=== PATIENT | male | born 1980 | race Two or more races ===

== ENCOUNTER → 2020-08-27 14:17 | Outpatient (BNVA) | payer OTHER, SELFPAY | PROVIDERS: PCP Internal Medicine; Referring Provider Internal Medicine; Visit Provider Internal Medicine Cardiovascular Disease | DX: R00.2 Palpitations (principal) | CPT/HCPCS: 99214 ==

== ENCOUNTER 2020-09-08 14:50 | Outpatient (REF) | payer OTHER, SELFPAY ==
--- NOTE | 2020-09-08 16:05 | XR_ITS ---
EXAMINATION: XR CHEST CLINICAL INFORMATION: Dyspnea. COMPARISON: None TECHNIQUE: 2 views of the chest were obtained. FINDINGS: No significant abnormality is noted involving the heart, lungs, mediastinum, bony thorax or soft tissues. XR/XR chest 2V IMPRESSION: Unremarkable examination.
== END 2020-09-08 14:51 | disposition home or self-care (01) ==
LOC: HO.XRAY 14:50
PROVIDERS: PCP Internal Medicine; Visit Provider Internal Medicine Pulmonary Disease
DX: R06.00 Dyspnea, unspecified (principal)
CPT/HCPCS: 71046; 99202

== ENCOUNTER → 2020-09-19 09:38 | Outpatient (REF) | payer OTHER, SELFPAY ==
--- NOTE | 2020-09-19 09:41 | CA_ITS ---
Transthoracic Echocardiogram Patient (Last, First, Middle): Collin Cedeño, Gender: Male Date of : 1980 Age: 40 Procedure Date: 09/19/2020 Procedure Type: Transthoracic Echocardiogram Location: OP Height: 182.88 cm Weight: 65.77 kg BSA: 1.86 m2 Heart Rate: bpm BP: 122 / 60 mmHg Combination Technician: Referring MD: Don Zamora MD Nutrition Intern: Shakir Estrada MD Symptoms: R06.00 - Dyspnea, unspecified Study Quality: Good ECG Rhythm: Sinus Conclusions: - Normal study Findings Left Ventricle Normal left ventricular size, thickness, and systolic function. The visually estimated ejection fraction is between 60-65%. Diastolic function is normal for age. Right Ventricle Normal right ventricular cavity size and systolic function. Atria Both atria are normal in size. There is no evidence of interatrial shunt. Aortic Valve Normal aortic valve structure and function. There is no aortic valve stenosis. There is no aortic valve regurgitation. Mitral Valve Normal mitral valve structure and function. There is trace mitral valve regurgitation. There is no mitral valve stenosis. Pulmonic Valve The pulmonic valve is normal. There is trace pulmonic valve regurgitation. Tricuspid Valve Normal tricuspid valve structure. There is trace tricuspid valve regurgitation. The right ventricular systolic pressure is normal. The right ventricular systolic pressure is 18 mmHg. Normal right atrial pressure. There is no evidence of pulmonary hypertension. Great Vessels All visible segments of the aorta are normal in size. The visualized portions of the pulmonary artery and branches are normal. Venous The inferior vena cava is normal in size and collapses greater than 50% with inspiration. Pericardium/Pleural There is no evidence of pericardial effusion. Prior Study Comparison No prior study available for comparison. Measurements 2D Linear Measurements IVSd: 0.77 0.6-0.9/0.6-1.0 cm LVIDd: 4.95 3.9-5.3/4.2-5.9 cm LVIDd Index: 2.66 2.4-3.2/2.2-3.1 cm/m2 LVIDs: 3.43 2.0-3.6 cm LVPWd: 0.76 0.7-1.1 cm Ao Root: 2.50 2.1-3.5 cm LA Diam: 3.40 2.7-3.8/3.0-4.0 cm LAIDs Index: 1.83 1.5-2.3 cm/m2 LV Mass: 157.24 67-162/88-224 g LV Mass Index: 84.54 43-95/49-115 g/m2 LVOT Diam: 2.10 3.0+(-)1.3 cm Mitral Valve MV Pk E: 0.82 MV PK A: 0.63 MV Decel Time: 261.00 E/A: 1.30 E'Lateral: 17.90 E'Medial: 10.70 E/E' Med: 7.60 E/E' Lat: 4.60 PHT: 76.00 MVA PHT: 2.89 Decel [place]: 3.13 Aortic Valve AoV Pk Jorge L: 1.48 AoV Mn Jorge L: 0.92 AoV VTI: 0.37 AoV Pk Grad: 9.00 Aov Mn Grad: 4.00 STONE Cont.VTI: 2.06 LVOT LVOT Pk Jorge L: 0.92 LVOT Mn Jorge L: 0.58 LVOT VTI: 0.22 LVOT Pk Grad: 3.00 LVOT Mn Grad: 2.00 LVOT Diam: 2.10 LVOT Area: 3.46 Diastolic Function MV Pk E: 0.82 MV Pk A: 0.63 E/A: 1.30 E'Medial: 10.70 E/E' Med: 7.60 E' Laterial: 17.90 E/E' Lat: 4.60 Tricuspid Valve TR Pk Jorge L: 1.94 TR Pk Grad: 15.00 RA Press: 3.00 RVSP: 18.00 Great Vessels Aorta Ao Root-2D: 2.50 2.0-3.7 cm Ao Asc: 3.00 2.1-3.4 cm Pulmonary Valve PV Pk Jorge L: 1.17 Peak PV Grad: 5.00 Updated in Other Vendor System with Status of Final Shakir Estrada MD electronically signed on 09/19/2020 4:05:27 PM with status of Final
--- NOTE | 2020-09-19 09:41 | ECG_ITS ---
Hook-up date: 2020-09-19 10:24:00 Duration: 47:59:00 Test Indications: PALPITATIONS Medications: 420248 QRS complexes 3 Ventricular ectopics which represent <1 % of total QRS comp. 23 Supraventricular ectopics which represent <1 % of total QRS comp. * Paced QRS complexs which represent % of total QRS comp. VENTRICULAR ECTOPY 3 Isolated 0 Bigeminal Cycles 0 Couplets 0 Runs 0 Beats in Runs * Beats LONGEST at * BPM at :: -- * Beats FASTEST at * BPM at :: -- SUPRAVENTRICULAR ECTOPY 5 Isolated 0 Couplets 0 Runs 0 Beats in Runs * Beats LONGEST at * BPM at :: -- * Beats FASTEST at * BPM at :: -- HEART RATES 52 MIN at 22:43:32 2020-09-19 56 AVG 138 MAX at 19:58:16 2020-09-20 LONGEST RR 1.4640 secs at 04:08:13 2020-09-21 S-T LEVELS Channel 1 - 128 mm at 10:24:00 2020-09-19 - 128 mm at 10:24:00 2020-09-19 Channel 2 - 128 mm at 10:24:00 2020-09-19 - 128 mm at 10:24:00 2020-09-19 Channel 3 - 128 mm at 02:94:31 -- - 128 mm at 02:94:31 Basic rhythm Normal sinus rhythm Frequent Sinus bradycardia , average HR of 56 bpm, 60% of time HR < 60 bpm No long pause or profound bradycardia No dangerous dysrhythm periods Patient did not report any symptoms in the diary Referred By: Rickie De León Overread By: MARGOTH GARDINER MD
== END ==
LOC: HO.CARD 09:38
PROVIDERS: PCP Internal Medicine; Visit Provider Internal Medicine Cardiovascular Disease
DX: R06.00 Dyspnea, unspecified (principal); R00.2 Palpitations
CPT/HCPCS: 93225; 93226; 93306

== ENCOUNTER → 2020-09-25 15:41 | Outpatient (BNVA) | payer OTHER, SELFPAY | PROVIDERS: PCP Internal Medicine; Visit Provider Internal Medicine Pulmonary Disease | DX: R06.00 Dyspnea, unspecified (principal); G47.33 Obstructive sleep apnea (adult) (pediatric) | CPT/HCPCS: 99212 ==

== ENCOUNTER → 2020-10-09 12:44 | Outpatient (REF) | payer OTHER, SELFPAY | LOC: HO.SL 12:44 | PROVIDERS: Visit Provider Internal Medicine Pulmonary Disease | DX: G47.33 Obstructive sleep apnea (adult) (pediatric) (principal) | CPT/HCPCS: 95806 ==

== ENCOUNTER → 2020-11-03 15:32 | Outpatient (BNVA) | payer OTHER, SELFPAY | PROVIDERS: PCP Internal Medicine; Visit Provider Internal Medicine Pulmonary Disease | DX: R06.00 Dyspnea, unspecified (principal); J84.9 Interstitial pulmonary disease, unspecified | CPT/HCPCS: 99212 ==

== ENCOUNTER → 2020-12-10 15:17 | Outpatient (BNVA) | payer OTHER, SELFPAY | PROVIDERS: PCP Internal Medicine; Visit Provider Internal Medicine Pulmonary Disease | DX: R06.00 Dyspnea, unspecified (principal); J84.9 Interstitial pulmonary disease, unspecified | CPT/HCPCS: 99212 ==

== ENCOUNTER → 2020-12-11 14:41 | Outpatient (BNVA) | payer OTHER, SELFPAY | PROVIDERS: PCP Internal Medicine; Visit Provider Internal Medicine Cardiovascular Disease | DX: R00.2 Palpitations (principal); R07.9 Chest pain, unspecified | CPT/HCPCS: 93005; 99212 ==

== ENCOUNTER 2020-12-26 16:14 | Outpatient (REF) | payer OTHER, SELFPAY ==
--- NOTE | ~2020-12-26 | CT_ITS ---
EXAMINATION: CT CHEST WITHOUT CONTRAST CLINICAL INFORMATION: Interstitial pulmonary disease COMPARISON: Previous chest x-ray September 2020 TECHNIQUE: Multidetector volumetric CT imaging of the chest was done. Axial MIP volume rendering provided. Sagittal and coronal reformatted images were obtained. This CT examination was performed using dose optimization techniques as appropriate, variously including the following: *Automated exposure control *Adjustment of mA and/or kV according to patient size (this includes techniques or standardized protocols for targeted exams where dose is matched to indication/reason for exam; i.e. 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 There is a 2 x 4 mm peripheral or subpleural left upper lobe nodule axial image 2:15 series 4. MEDIASTINUM: The mediastinum is normal. PLEURA: There is no pleural effusion. No pleural mass or thickening. AXILLA: No lymphadenopathy. UPPER ABDOMEN: Unremarkable. OSSEOUS STRUCTURES: There is a small calcification in the liver. CT/CT chest wo con IMPRESSION: Mild biapical pleural and parenchymal scarring. Solitary 2 x 4 mm peripheral or subpleural left upper lobe nodule. No evidence of interstitial lung disease. According to the UPDATED 2017 Fleischner Society recommendations, the advised follow-up imaging for less than 6 mm pulmonary nodule: Low risk, no chest CT follow-up and high risk, optional chest CT follow-up in one year.
== END 2020-12-26 16:15 | disposition home or self-care (01) ==
LOC: HO.CT 16:14
PROVIDERS: Visit Provider Internal Medicine Pulmonary Disease
DX: J84.9 Interstitial pulmonary disease, unspecified (principal)
CPT/HCPCS: 71250

== ENCOUNTER → 2021-01-09 14:39 | Outpatient (BNVA) | payer OTHER, SELFPAY | PROVIDERS: Visit Provider Internal Medicine Pulmonary Disease | DX: J45.909 Unspecified asthma, uncomplicated (principal); J84.9 Interstitial pulmonary disease, unspecified; R91.1 Solitary pulmonary nodule | CPT/HCPCS: 99212 ==

== ENCOUNTER 2021-01-12 09:17 | Outpatient (REF) | payer OTHER, SELFPAY ==
[2021-01-12 10:03] LABS: MANUAL DIFF FLAG NO
[2021-01-12 10:11] LABS: Basophils Percent Auto 0.5 % (0-2); Eosinophils Absolute Auto 0.2 X10*3/uL (0.0-0.4); Eosinophils Percent Auto 2.7 % (0-4); Hematocrit 45.3 % (42-52); Hemoglobin 15.1 g/dl (14.0-18.0); Imm Gran Abs Auto 0.02 X10*3/uL (0.00-0.03); Imm Gran Pct Auto 0.3 % (0.0-0.4); Lymphocytes Absolute Auto 1.8 X10*3/uL (1.2-4.9); Lymphocytes Percent Auto 29.4 % (20-40); Mean Corpuscular HGB Conc 33.3 g/dl (31.0-36.0); Mean Corpuscular Hemoglobin 31.5 pg (27.0-33.0); Mean Corpuscular Volume 94.4 fL (80-98); Mean Platelet Volume 10.3 fL (9.4-12.4); Monocytes Absolute Auto 0.5 X10*3/uL (0.1-1.2); Monocytes Percent Auto 8.1 % (2-11); Neutrophils Absolute Auto 3.7 X10*3/uL (2.0-8.3); Platelet Count 307 X10*3/uL (160-400); Red Cell Distribution Width 12.3 % (11.0-16.0); White Blood Count 6.2 X10*3/uL (4.8-10.8)
== END 2021-01-12 09:18 | disposition home or self-care (01) ==
LOC: HO.LAB 09:17
PROVIDERS: PCP Internal Medicine; Visit Provider Internal Medicine Pulmonary Disease
DX: R06.00 Dyspnea, unspecified (principal); Z01.82 Encounter for allergy testing
CPT/HCPCS: 36415; 82785; 85025; 86003

== ENCOUNTER 2021-02-24 07:35 | Outpatient (REF) | payer OTHER, SELFPAY | END 2021-02-24 07:36 | disposition home or self-care (01) | LOC: HO.MDS 07:35 | PROVIDERS: PCP Internal Medicine; Visit Provider Internal Medicine Pulmonary Disease | DX: J45.50 Severe persistent asthma, uncomplicated (principal) | CPT/HCPCS: 96372; J2357 ==

== ENCOUNTER 2021-03-24 07:08 | Outpatient (REF) | payer OTHER, SELFPAY | END 2021-03-24 07:09 | disposition home or self-care (01) | LOC: HO.MDS 07:08 | PROVIDERS: PCP Internal Medicine; Visit Provider Internal Medicine Pulmonary Disease | DX: J45.50 Severe persistent asthma, uncomplicated (principal) | CPT/HCPCS: 96372; J2357 ==

== ENCOUNTER 2021-04-21 07:07 | Outpatient (REF) | payer OTHER, SELFPAY | END 2021-04-21 07:08 | disposition home or self-care (01) | LOC: HO.MDS 07:07 | PROVIDERS: PCP Internal Medicine; Visit Provider Internal Medicine Pulmonary Disease | DX: J45.50 Severe persistent asthma, uncomplicated (principal) | CPT/HCPCS: 96372; J2357 ==

== ENCOUNTER 2021-07-09 08:44 | Outpatient (REF) | payer OTHER, SELFPAY | END 2021-07-09 08:45 | disposition home or self-care (01) | LOC: HO.MDS 08:44 | PROVIDERS: PCP Internal Medicine; Visit Provider Internal Medicine Pulmonary Disease | DX: J45.50 Severe persistent asthma, uncomplicated (principal) | CPT/HCPCS: 96372; J2357 ==

== ENCOUNTER → 2021-07-10 14:50 | Outpatient (BNVA) | payer OTHER, SELFPAY | PROVIDERS: PCP Internal Medicine; Visit Provider Internal Medicine Pulmonary Disease | DX: J45.909 Unspecified asthma, uncomplicated (principal); J84.9 Interstitial pulmonary disease, unspecified; R91.1 Solitary pulmonary nodule | CPT/HCPCS: 99212 ==

== ENCOUNTER 2021-08-07 13:20 | Outpatient (REF) | payer MEDICAID, SELFPAY | END 2021-08-07 13:21 | disposition home or self-care (01) | LOC: HO.MDS 13:20 | PROVIDERS: Visit Provider Internal Medicine Pulmonary Disease | DX: J45.50 Severe persistent asthma, uncomplicated (principal) | CPT/HCPCS: 96372; J2357 ==

== ENCOUNTER 2021-09-01 13:46 | Outpatient (REF) | payer MEDICAID, SELFPAY ==
[2021-09-01 15:46] LABS: C Reactive Protein 0.18 mg/dL (< or = 0.50); Lipase 49 U/L (8-78)
[2021-09-01 16:07] LABS: TSH reflex Free T4 0.93 uIU/mL (0.32-4.0)
[2021-09-01 16:22] LABS: Folate 15.5 ng/mL (> or = 4.0); Vitamin B12 974 pg/mL (200-900)
[2021-09-03 16:11] LABS: Transglutaminase Ab IgG <1.0 U/mL; Transglutaminase IgA <1.0 U/mL
[2021-09-05 15:21] LABS: Vitamin D 25-OH, D2 <4 ng/mL; Vitamin D 25-OH, D3 22 ng/mL; Vitamin D 25-OH, Total 22 ng/mL (30-100)
== END 2021-09-01 13:47 | disposition home or self-care (01) ==
LOC: HO.LAB 13:46
PROVIDERS: PCP Internal Medicine; Referring Provider Internal Medicine; Visit Provider Nurse Practitioner Family
DX: K21.9 Gastro-esophageal reflux disease without esophagitis (principal); K58.2 Mixed irritable bowel syndrome; E55.9 Vitamin D deficiency, unspecified; R10.11 Right upper quadrant pain; R14.0 Abdominal distension (gaseous); Z12.11 Encounter for screening for malignant neoplasm of colon
CPT/HCPCS: 36415; 82306; 82607; 82746; 83516; 83690; 84443; 86140; 99202

== ENCOUNTER 2021-09-02 17:35 | Outpatient (REF) | payer MEDICAID, SELFPAY | END 2021-09-02 17:36 | disposition home or self-care (01) | LOC: HO.LNP 17:35 | PROVIDERS: Visit Provider Nurse Practitioner Family | DX: K21.9 Gastro-esophageal reflux disease without esophagitis (principal) | CPT/HCPCS: 87338 ==

== ENCOUNTER 2021-09-04 09:08 | Outpatient (REF) | payer MEDICAID, SELFPAY | END 2021-09-04 09:09 | disposition home or self-care (01) | LOC: HO.MDS 09:08 | PROVIDERS: Visit Provider Internal Medicine Pulmonary Disease | DX: J45.50 Severe persistent asthma, uncomplicated (principal) | CPT/HCPCS: 96372; J2357 ==

== ENCOUNTER 2021-10-08 11:06 | Outpatient (REF) | payer MEDICAID, SELFPAY | END 2021-10-08 11:07 | disposition home or self-care (01) | LOC: HO.MDS 11:06 | PROVIDERS: Visit Provider Internal Medicine Pulmonary Disease | DX: J45.50 Severe persistent asthma, uncomplicated (principal) | CPT/HCPCS: 96372; J2357 ==

== ENCOUNTER 2021-10-09 09:41 | Outpatient (REF) | payer MEDICAID, SELFPAY ==
[2021-10-11 13:26] LABS: H Pylori Breath Test Negative (Negative)
== END 2021-10-09 09:42 | disposition home or self-care (01) ==
LOC: HO.LNP 09:41
PROVIDERS: PCP Internal Medicine; Referring Provider Internal Medicine; Visit Provider Nurse Practitioner Family
DX: K21.9 Gastro-esophageal reflux disease without esophagitis (principal); A04.8 Other specified bacterial intestinal infections; K58.9 Irritable bowel syndrome, unspecified; E55.9 Vitamin D deficiency, unspecified; R07.9 Chest pain, unspecified; R00.2 Palpitations; Z82.49 Family history of ischemic heart disease and other diseases of the circulatory system
CPT/HCPCS: 83013; 99212

== ENCOUNTER 2021-11-05 09:17 | Outpatient (REF) | payer MEDICAID, SELFPAY | END 2021-11-05 09:18 | disposition home or self-care (01) | LOC: HO.MDS 09:17 | PROVIDERS: Visit Provider Internal Medicine Pulmonary Disease | DX: J45.50 Severe persistent asthma, uncomplicated (principal) | CPT/HCPCS: 96372; J2357 ==

== ENCOUNTER 2021-12-03 08:44 | Outpatient (REF) | payer MEDICAID, SELFPAY | END 2021-12-03 08:45 | disposition home or self-care (01) | LOC: HO.MDS 08:44 | PROVIDERS: Visit Provider Internal Medicine Pulmonary Disease | DX: J45.50 Severe persistent asthma, uncomplicated (principal) | CPT/HCPCS: 96372 ==

== ENCOUNTER 2021-12-24 08:58 | Outpatient (REF) | payer MEDICAID, SELFPAY ==
--- NOTE | ~2021-12-24 | CT_ITS ---
EXAMINATION: CT CHEST WITHOUT CONTRAST CLINICAL INFORMATION: 41-year-old male with history of shortness of breath. Evaluate for interstitial lung disease. COMPARISON: CXR from 09/08/[address] from 12/26/2020. TECHNIQUE: Multidetector volumetric CT imaging of the chest was done. Axial MIP volume rendering provided. Sagittal and coronal reformatted images were obtained. This CT examination was performed using dose optimization techniques as appropriate, variously including the following: *Automated exposure control *Adjustment of mA and/or kV according to patient size (this includes techniques or standardized protocols for targeted exams where dose is matched to indication/reason for exam; i.e. extremities or head) *Use of iterative reconstruction technique DLP: 127 mGy-cm FINDINGS: LUNGS AND PLEURA: Trachea and central airways are widely patent and normal in caliber. Chronic, mild subpleural opacity of scarring is noted at the lung apices. No evidence of interstitial lung disease, consolidation or pleural effusion. A small opacity in the anterolateral left upper lobe that measures 0.2 cm AP has a linear appearance and is stable compared to 12/26/2020 (image 75, series 6). The linear configuration suggests chronic focus of scarring. No interval development of a suspicious lung lesion. CARDIOVASCULAR: The heart size is normal. Pulmonary arteries and thoracic aorta are normal in caliber. No pericardial effusion. MEDIASTINUM AND LOWER NECK: No mediastinal mass. The esophagus and visualized portion of the thyroid gland are normal. LYMPHATICS: No pathologic sized lymph nodes. UPPER ABDOMEN: A few old punctate calcifications are seen in the right hepatic lobe. SKELETAL AND CHEST WALL: No chest wall mass. Skeletal structures are unremarkable. CT/CT chest wo con IMPRESSION: * No evidence of interstitial lung disease. * The chronic, mild biapical scarring remains unchanged compared to 12/26/2020. No interval of a suspicious lung lesion, mass or lymphadenopathy.
== END 2021-12-24 08:59 | disposition home or self-care (01) ==
LOC: HO.CT 08:58
PROVIDERS: PCP Internal Medicine; Visit Provider Internal Medicine Pulmonary Disease
DX: J84.9 Interstitial pulmonary disease, unspecified (principal)
CPT/HCPCS: 71250

== ENCOUNTER 2022-01-04 11:31 | Outpatient (REF) | payer MEDICAID, SELFPAY | END 2022-01-04 11:32 | disposition home or self-care (01) | LOC: HO.MDS 11:31 | PROVIDERS: Visit Provider Internal Medicine Pulmonary Disease | DX: J45.50 Severe persistent asthma, uncomplicated (principal) | CPT/HCPCS: 96372; J2357 ==

== ENCOUNTER → 2022-01-13 14:41 | Outpatient (BNVA) | payer MEDICAID, SELFPAY | PROVIDERS: PCP Internal Medicine; Visit Provider Internal Medicine Pulmonary Disease | DX: J45.909 Unspecified asthma, uncomplicated (principal); J34.2 Deviated nasal septum; Z91.09 Other allergy status, other than to drugs and biological substances | CPT/HCPCS: 99212 ==

== ENCOUNTER 2022-02-01 12:52 | Outpatient (REF) | payer MEDICAID, SELFPAY | END 2022-02-01 12:53 | disposition home or self-care (01) | LOC: HO.MDS 12:52 | PROVIDERS: Visit Provider Internal Medicine Pulmonary Disease | DX: J45.50 Severe persistent asthma, uncomplicated (principal) | CPT/HCPCS: 96372; J2357 ==

== ENCOUNTER 2022-03-01 12:47 | Outpatient (REF) | payer MEDICAID, SELFPAY | END 2022-03-01 12:48 | disposition home or self-care (01) | LOC: HO.MDS 12:47 | PROVIDERS: Visit Provider Internal Medicine Pulmonary Disease | DX: J45.50 Severe persistent asthma, uncomplicated (principal) | CPT/HCPCS: 96372; J2357 ==

== ENCOUNTER 2022-04-06 13:45 | Outpatient (REF) | payer MEDICAID, SELFPAY | END 2022-04-06 13:46 | disposition home or self-care (01) | LOC: HO.MDS 13:45 | PROVIDERS: Visit Provider Internal Medicine Pulmonary Disease | DX: J45.50 Severe persistent asthma, uncomplicated (principal) | CPT/HCPCS: 96372; J2357 ==

== ENCOUNTER 2022-05-13 08:05 | Outpatient (REF) | payer MEDICAID, SELFPAY | END 2022-05-13 08:06 | disposition home or self-care (01) | LOC: HO.MDS 08:05 | PROVIDERS: Visit Provider Internal Medicine Pulmonary Disease | DX: J45.50 Severe persistent asthma, uncomplicated (principal) | CPT/HCPCS: 96372; J2357 ==

== ENCOUNTER 2022-06-10 08:28 | Outpatient (REF) | payer MEDICAID, SELFPAY | END 2022-06-10 08:29 | disposition home or self-care (01) | LOC: HO.MDS 08:28 | PROVIDERS: PCP Internal Medicine; Visit Provider Internal Medicine Pulmonary Disease | DX: J45.50 Severe persistent asthma, uncomplicated (principal) | CPT/HCPCS: 96372; J2357 ==

== ENCOUNTER 2022-07-08 07:46 | Outpatient (REF) | payer MEDICAID, SELFPAY | END 2022-07-08 07:47 | disposition home or self-care (01) | LOC: HO.MDS 07:46 | PROVIDERS: Visit Provider Internal Medicine Pulmonary Disease | DX: J45.50 Severe persistent asthma, uncomplicated (principal) | CPT/HCPCS: 96372; J2357 ==

== ENCOUNTER → 2022-07-30 09:00 | Outpatient (BNVA) | payer MEDICAID, SELFPAY | PROVIDERS: PCP Internal Medicine; Visit Provider Internal Medicine Pulmonary Disease | DX: J45.909 Unspecified asthma, uncomplicated (principal); Z91.09 Other allergy status, other than to drugs and biological substances | CPT/HCPCS: 99212 ==

== ENCOUNTER 2022-08-12 06:38 | Day surgery (SDC) | payer MEDICAID, SELFPAY ==
--- NOTE | 2022-08-11 12:18 | HO.ANESPROP2 ---
Documented by User: Carly Tapia NP 08/11/22 12:19 HPI - Anesthesia Eval Consult details Narrative: 41yo M for Upper Endoscopy COUNT INCLUDES THE [facility] Active Problems Active Problems: All Active Problems (Updated 08/11/22 @ 11:47 by Racheal Perez, FRAN) Dyspnea on exertion (Acute) Obstructive sleep apnea (Acute) ILD (interstitial lung disease) (Acute) Reactive airway disease (Acute) Pulmonary nodule (Acute) Asthma (Acute) Environmental allergies (Acute) Deviated septum (Acute) Helicobacter pylori (H. pylori) (Acute) Chest pain (Acute) Palpitations (Acute) Past Medical History Medical History Asthma Chest pain Helicobacter pylori (H. pylori) History of sleep study Palpitations Family History Family History Father Hypertension Cardiovascular disease Surgical History Surgical History Surgical history unknown Social History Social History Do you presently have visiting nurse or other home services: No Alcohol intake: former Patient Tobacco Use Status: Never used Tobacco Use of substances other than those prescribed or required for medical reasons: No Have you been hit, kicked, punched, or otherwise hurt by someone within the past year? If so, by whom?: No Are you DNR?: No Advance Directives: No Advance Directives Information Provided: Yes Recently lost weight without trying: No Eating poorly because of decreased appetite: No Nutrition Risks: No Nutritional Risk Poor oral hygiene: No Meds Allergies Allergy/AdvReac Type Severity Reaction Status Date / Time No Known Allergies Allergy Verified 07/30/22 09:03 Home Medications Medication Instructions Recorded Confirmed Last Taken Type hydroxyzine HCl 25 mg tablet 25 mg PO BID 08/27/20 Unknown History albuterol sulfate 90 mcg/actuation 2 puff inhalation Q4-6H PRN 12/11/20 06/09/22 Unknown History aerosol inhaler Shortness Of Breath budesonide-formoterol HFA 160 2 puff PO BID 12/11/20 06/09/22 Unknown History mcg-4.5 mcg/actuation aerosol inhaler cholecalciferol (vitamin D3) 25 1 tab PO DAILY 06/09/22 06/09/22 Unknown History mcg (1,000 unit) tablet hydrochlorothiazide 12.5 mg capsule 1 cap PO DAILY 06/09/22 06/09/22 Unknown History Exam Exam Date and Time: August 11, 20221217 Assessment and Plan Assessment Anesthesia Assessment: Chart Reviewed Documented by User: Vick Medina MD 08/12/22 08:34 PMF Past Medical History Medical History Asthma Chest pain Helicobacter pylori (H. pylori) History of sleep study Palpitations Family History Family History Father Hypertension Cardiovascular disease Family history of problems with anesthesia: No Surgical History Surgical History Surgical history unknown History of Problems with Anesthesia: No Social History Social History Do you presently have visiting nurse or other home services: No Alcohol intake: former Patient Tobacco Use Status: Never used Tobacco Use of substances other than those prescribed or required for medical reasons: No Have you been hit, kicked, punched, or otherwise hurt by someone within the past year? If so, by whom?: No Are you DNR?: No Advance Directives: No Advance Directives Information Provided: Yes Recently lost weight without trying: No Eating poorly because of decreased appetite: No Nutrition Risks: No Nutritional Risk Poor oral hygiene: No Meds Allergies Allergy/AdvReac Type Severity Reaction Status Date / Time No Known Allergies Allergy Verified 07/30/22 09:03 Home Medications Medication Instructions Recorded Confirmed Last Taken Type hydroxyzine HCl 25 mg tablet 25 mg PO BID 08/27/20 Unknown History albuterol sulfate 90 mcg/actuation 2 puff inhalation Q4-6H PRN 12/11/20 06/09/22 Unknown History aerosol inhaler Shortness Of Breath budesonide-formoterol HFA 160 2 puff PO BID 12/11/20 06/09/22 Unknown History mcg-4.5 mcg/actuation aerosol inhaler cholecalciferol (vitamin D3) 25 1 tab PO DAILY 06/09/22 06/09/22 Unknown History mcg (1,000 unit) tablet hydrochlorothiazide 12.5 mg capsule 1 cap PO DAILY 06/09/22 06/09/22 Unknown History Exam Airway Mallampati Class: I TM Dist: >3cm Neck ROM: Full Loose/Missing/Broken Teeth: No (Rrr) Heart: rrr Lungs: clear Assessment and Plan Final Anesthetic Review Family History of Problems with Anesthesia: No History of Problems with Anesthesia: No NPO: Yes ASA Class: II Final Preanesthetic Review: No Changes in Pt Med Stat, Meds/Allgs Chart Reviewed, Consent Obtained/Reviewed and Anes Risks/Benef Reviewed Patient Risk: Intermediate
--- NOTE | 2022-08-12 07:03 | P.HPSUR_ITS ---
Pre-Procedural Eval Section A Date of Service: 08/12/22 Section B Chief Complaint: reflux disease Details of Present Illness: dysphagia as well Relevant Family History (Specify if Yes): No Relevant Social History: None Present Medications: see Short Stay Collaborative assessment Medical History: Significant History (Asthma Chest pain Helicobacter pylori (H. pylori) History of sleep study Palpitations) History of Previous Operations: No relevant previous surgery Allergies: Allergies Allergy/AdvReac Type Severity Reaction Status Date / Time No Known Allergies Allergy Verified 07/30/22 09:03 Review of Systems Sugical H&P ROS: Negative: Constitution, Cardiovascular, Respiratory, Neurological, Psychiatric, Hem-Onc, Allergic/Immunologic, Gastrointestinal, Genitourinary, Musculoskeletal, Integumentary, Endocrine and Eyes/Ears/Nose /Throat Exam Surgical H&P Exam: Normal: HEENT, Normal: Heart, Normal: Lungs, Normal: Extremities, Normal: Abdomen, Normal: Skin and Normal: Neurological Plan Diagnosis/Plan: Unchanged I have reviewed the history and physical and performed a pertinent physical examination on my patient. No changes have occurred unless specified.
[2022-08-12 07:40] VITALS: BP 137/87; PULSE 64; RESP 18; TEMP 36.8; O2SAT 100; BMI 21.0
[2022-08-12] MEDS: Lactated Ringers 1,000 ML 100 ML IVCONT (07:46)
--- NOTE | 2022-08-12 08:57 | W.PM.OPN ---
Operative Note Operative Note Date of Service: 08/12/22 Narrative: Procedure Description: EGD Indication: [] Anesthesia: MAC FLEXIBLE TRANSORAL UPPER GASTROINTESTINAL ENDOSCOPY UPPER ENDOSCOPY Consent: Indications for the procedure and potential complications of bleeding, perforation, reaction to medications and missed diagnosis were discussed with the patient and informed consent was obtained. Instrument: Olympus GIF H 190 J mid size upper endoscope Monitoring: Vital signs and clinical assessment, continuous EKG monitoring, Pulse oximetry, Carbon Dioxide monitoring and blood pressure monitoring were done throughout the procedure. Procedure: The patient was placed in the left lateral decubitis position and pre-procedure medications were administered and a bite block was placed. The endoscope was inserted into the mouth and advanced under direct vision to the third part of duodenum. A careful inspection was made as the upper endoscope was withdrawn including a retroflexed examination of the proximal stomach; Findings and interventions are described below. Findings: Larynx:normal Esophagus: GE junction at 36 cm, diaphragm hiatus at 38 cm, consistent with 2 cm sliding hiatal hernia, schatzki ring noted, savary dilation done with wire using 15 mm bougie, no tears seen. Bx taken from GEJ, distal and proximal esophagus in different jars. Stomach: mild gastric erythema. Biopsies were obtained. Grade 2 flap valve on retroflexed examination of the cardia. Duodenum: mild duodenitis, bx taken Intervention: Biopsies as noted above, savary dilation Impression/Findings: schatzki ring hiatal hernia PLAN: check compliance and timing of PPI if ongoing sx then can consider hummel or PH impedance, vs surgical referral for fundoplication, or hybrid APC
[2022-08-12 09:03] VITALS: BP 125/80; PULSE 90; RESP 16; TEMP 36.8; O2SAT 99
[2022-08-12 09:18] VITALS: BP 108/70; PULSE 78; RESP 16; TEMP 36.6; O2SAT 96
[2022-08-12 09:33] VITALS: BP 125/80; PULSE 60; RESP 18; TEMP 36.9; O2SAT 99
[2022-08-12 09:48] VITALS: BP 121/83; PULSE 76; RESP 16; TEMP 36.6; O2SAT 100
== END 2022-08-12 11:01 | disposition home or self-care (01) ==
PROVIDERS: PCP Internal Medicine; Visit Provider Internal Medicine Gastroenterology
PROC: 0DJ08ZZ Inspection of Upper Intestinal Tract, Via Natural or Artificial Opening Endoscopic (ICD-10-PCS; CPT 43235; principal; 2022-08-12 08:20)
DX: K21.9 Gastro-esophageal reflux disease without esophagitis (principal); R13.10 Dysphagia, unspecified; K22.2 Esophageal obstruction; K44.9 Diaphragmatic hernia without obstruction or gangrene; K29.80 Duodenitis without bleeding; A04.8 Other specified bacterial intestinal infections; R79.89 Other specified abnormal findings of blood chemistry; J45.909 Unspecified asthma, uncomplicated; R00.2 Palpitations; K58.9 Irritable bowel syndrome, unspecified
CPT/HCPCS: 43248; 43239; 88305; 88342; C1769

== ENCOUNTER 2022-08-17 12:22 | Outpatient (REF) | payer MEDICAID, SELFPAY ==
--- NOTE | ~2022-08-17 | XR_ITS ---
EXAMINATION: XR CHEST CLINICAL INFORMATION: Chest pain COMPARISON: Previous chest x-ray September 2020 TECHNIQUE: 2 views of the chest were obtained. FINDINGS: No significant abnormality is noted involving the heart, lungs, mediastinum, bony thorax or soft tissues. XR/XR chest 2V IMPRESSION: Unremarkable examination.
== END 2022-08-17 12:23 | disposition home or self-care (01) ==
LOC: HO.XRAY 12:22
PROVIDERS: Absent Provider Internal Medicine; PCP Internal Medicine; Visit Provider Emergency Medicine
DX: R07.9 Chest pain, unspecified (principal)
CPT/HCPCS: 71046

== ENCOUNTER → 2022-08-31 15:36 | Outpatient (BNVA) | payer MEDICAID, SELFPAY | PROVIDERS: PCP Internal Medicine; Visit Provider Nurse Practitioner Family | DX: K21.9 Gastro-esophageal reflux disease without esophagitis (principal); R10.13 Epigastric pain | CPT/HCPCS: 99212 ==

== ENCOUNTER 2023-11-14 13:26 | Outpatient (REF) | payer MEDICAID, SELFPAY | END 2023-11-14 13:27 | disposition home or self-care (01) | LOC: HO.HHCLNP 13:26 | PROVIDERS: Visit Provider Internal Medicine | DX: N41.0 Acute prostatitis (principal) | CPT/HCPCS: 0353U; 87086 ==

== ENCOUNTER 2023-12-05 08:40 | Outpatient (REF) | payer MEDICAID, SELFPAY ==
[2023-12-05 11:57] LABS: Anion Gap 12 (12-20); Blood Urea Nitrogen 11 mg/dL (9-16); Calcium 9.8 mg/dL (8.4-10.2); Carbon Dioxide 28 mmol/L (22-29); Chloride 102 mmol/L (96-108); Estimated Glomerular Filt Rate > 60; Glucose Random 103 mg/dL (60-115); Potassium 3.8 mmol/L (3.3-5.1); Sodium 138 mmol/L (135-145)
[2023-12-07 11:03] LABS: Free Prostate Spec Ag 0.1 ng/mL; Percent Free Prostate Spec Ag 17 % (calc) (>25); Prostate Specific Ag Total 0.6 ng/mL (< OR = 4.0)
== END 2023-12-05 08:41 | disposition home or self-care (01) ==
LOC: HO.HHCL 08:40
PROVIDERS: Visit Provider Internal Medicine
DX: N41.0 Acute prostatitis (principal)
CPT/HCPCS: 36415; 80048; 84154

== ENCOUNTER 2024-01-03 11:01 | Outpatient (AMB) | payer MEDICAID, SELFPAY ==
--- NOTE | 2024-01-03 11:03 | A.OFFVIS_ITS ---
Intake Vital Signs 01/03/24 11:11 Height 6 ft Weight 161 lb BMI 21.8 BP 157/86 H Blood Pressure Location Rt brachial Position Sitting Pulse 73 Intake Visit Reasons: Left inguinal pain Intake Note: Patient referred by PCP Dr. Neptali Martinez for Lt inguinal pain that started 4- 5m. Patient c/o: constipation. Cut Off Saw Operator Required: No Allergies No Known Allergies Allergy (Verified 08/31/22 15:53) HPI HPI Comments History of Present Illness Details Patient presents here with a proximally six-month history of left groin pain. 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 Because of progression of symptoms he presents here further evaluation. Patient has no other GI issues or complaints. He has tolerating a diet. Having regular bowel habits. Chart was reviewed and patient evaluated [facility] Medical History Asthma History of sleep study Helicobacter pylori (H. pylori) Chest pain Palpitations Surgical History Hx of colonoscopy Surgical history unknown Family History Father Hypertension Cardiovascular disease Social History Do you presently have visiting nurse or other home services: No Alcohol intake: former Patient Tobacco Use Status: Never used Tobacco Physical Exam Vital Signs: Last Vital Signs Pulse 73 01/03/24 11:11 BP 157/86 H 01/03/24 11:11 BMI result Body Mass Index 21.8 Const Other: Thin male no acute distress Chest Other: Chest breath sounds bilaterally, HS 1 in 2 GI Other: Patient was examined both supine and standing with Valsalva. Right groin negative. Abdomen is soft and benign. Genitalia within normal limits. Moderately sized reducible left inguinal hernia. Assessment & Plan Assessment & Plan (1) Left inguinal hernia: Code(s): K40.90 - Unilateral inguinal hernia, without obstruction or gangrene, not specified as recurrent Plan Risks, benefits, alternatives of open left inguinal hernia repair with possible mesh placement reviewed with the patient and included but not limited to bleeding, infection, recurrence, numbness, pain, scarring and the patient wishes to proceed. All questions answered. Arrangements were made for this. Coding Level of Care Code New Pt Level 5 (07362) Diagnoses Left inguinal hernia K40.90
[2024-01-03 11:11] VITALS: BP 157/86; PULSE 73; BMI 21.8
== END 2024-01-03 11:18 | disposition home or self-care (01) ==
PROVIDERS: PCP Internal Medicine; Referring Provider Internal Medicine; Visit Provider Surgery
DX: K40.90 Unilateral inguinal hernia, without obstruction or gangrene, not specified as recurrent (principal)
CPT/HCPCS: 99204

== ENCOUNTER → 2024-01-03 11:01 | Outpatient (BNVA) | payer MEDICAID, SELFPAY | PROVIDERS: PCP Internal Medicine; Referring Provider Internal Medicine; Visit Provider Surgery | DX: K40.90 Unilateral inguinal hernia, without obstruction or gangrene, not specified as recurrent (principal) | CPT/HCPCS: 99202 ==

== ENCOUNTER 2024-01-17 14:22 | Outpatient (AMB) | payer MEDICAID, SELFPAY ==
--- NOTE | 2024-01-17 14:24 | A.OFFVIS_ITS ---
Intake Intake Visit Reasons: recurrent prostatitis Intake Note: NEW Patient presents today to established treatment for recurrent prostatitis Meds- None Allergies to Antibiotic- No Known Allergies Blood Thinner- None Patient Symptoms: Patient stated he has pain during morning time, in the bladder site. He stated he is been diagnosed with blood in the urine and inflammation in the prostate, however he has never seen visible blood in the urine. He stated he is a non-smoker. Slasher Tender Helper Required: Yes Slasher Tender Helper Name: TYRESE LAW-JERMAIN Accompanied by: Self / Same As Patient Allergies No Known Allergies Allergy (Verified 01/17/24 22:19) Medication List - Last Reconciled 01/17/24 by BERNARD Austin-BC albuterol sulfate 90 mcg/actuation 2 puffs inhalation Q4-6H PRN budesonide-formoterol 160-4.5 mcg/actuation 2 puffs PO BID hydrochlorothiazide 1 cap PO DAILY hydroxyzine HCl 25 mg PO BID pantoprazole 40 mg PO DAILY HPI HPI Comments History of Present Illness Details Collin is a very pleasant 43-year-old Bahamian-speaking male patient of Dr. Neptali Martinez. He has a past medical history of asthma, H pylori, in palpitations. He presents to the office today as a new patient for prostatitis. In discussion with the patient today reports having followed up with his PCP for new onset lower urinary tract symptoms he had been experiencing at which time a MARINA was performed in office by PCP and patient was treated for prostatitis. He reports having since completed antibiotic therapy. He reports significant improvement in urinary urgency, frequency, and nocturia he had been experiencing. He does continue to report intermittent episodes of bladder pr essure and dysuria with 1st urination of the morning. However he reports this varies. He otherwise denies urinary urgency, urinary frequency, incontinence, nocturia, hematuria, foul smelling urine, changes to urinary stream, flank pain, fever, and or chills. He is happy with his current voiding parameters. Discussed at length potential causes of prostatitis. In office urinalysis results reviewed with the patient today. He otherwise offers no other issues or concerns at this time. REPLACED BY [facility] Medical History Asthma History of sleep study Helicobacter pylori (H. pylori) Chest pain Palpitations Surgical History Hx of colonoscopy Surgical history unknown Family History Father Hypertension Cardiovascular disease Social History Do you presently have visiting nurse or other home services: No Alcohol intake: former Patient Tobacco Use Status: Never used Tobacco Review of Systems Const Reports no additional complaints Eyes Reports no additional complaints ENT Reports no additional complaints Card Reports as per HPI Resp Reports as per HPI GI Reports as per HPI Reports as per HPI Musc Reports no additional complaints Neuro Reports no additional complaints Psych Reports no additional complaints Endo Reports no additional complaints Mo/Lymph Reports no additional complaints Aller/Immun Reports no additional complaints Physical Exam Const General: cooperative, healthy appearing, comfortable, no acute distress, well developed, alert and awake Nutritional Appearance: average body habitus Orientation/consciousness: patient oriented x3 Limitations: no limitations HEENT Head: Yes normal to inspection, Yes normocephalic and Yes atraumatic Ears: hearing grossly normal bilaterally Eyes General: appearance normal, both eyes and all related structures Neck Neck: Yes normal visual inspection and Yes trachea midline Chest Chest palpation & inspection: normal inspection of the chest Resp Effort & Inspection: normal respiratory effort and able to speak in complete sentences Cardio Rate: regular rate GI Inspection: Yes normal to inspection General: Yes no CVA tenderness Back/Spine/Pelvis Back: no CVA tenderness Skin General skin exam: no rashes or lesions noted Neuro General: patient oriented x3 Extrem General: Yes normal to inspection Psych Appearance: grossly normal and well kempt Mental Status: mental status grossly normal Speech and movement: Normal speech and movement present and Clear speech present Affect: normal affect Attitude: cooperative Thought process: Normal thought process present Thought content: Normal thought content present Insight: Fair insight present (Psych) Judgement: Fair judgement present (Psych) Results AMB Urinalysis, Automated UA Leukoctes 0 Jimi/uL Last Edit by Mindy Rinaldi CMA on 01/17/24 14 :43 UA Nitrite Negative Last Edit by Mindy Rinaldi CMA on 01/17/24 14: 43 UA Urobilinogen 0.2 mg/dL Last Edit by Mindy Rinaldi CMA on 4 14:43 UA Protein 0 mg/dL [facility] on 01/17/24 14:43 UA pH 7.0 Last Edit by [facility], [facility] on 01/17/24 14:43 UA Blood 25 Nehemias/uL Last [facility] on 01/17/24 14:43 UA Specific [facility] 1.010 Last Edit by [facility], [facility] on 14:43 UA Ketone Negative Last Edit by [facility], [facility] on 01/17/24 14:4 3 UA Bilirubin 0 mg/dL Last Edit by [facility] on 01/17/24 14: 43 UA Glucose 0 mg/dL Last Edit by [facility], [facility] on 01/17/24 14:43 Results Reviewed Results Reviewed: Laboratory Last Values Urine pH (Auto) 7.0 01/17/24 14:40 Specific [facility] (Auto) 1.010 01/17/24 14:40 Urine Protein (Auto) 0 mg/dL 01/17/24 14:40 Glucose (UA)(Auto) 0 mg/dL 01/17/24 14:40 Urine Ketones (Auto) Negative 01/17/24 14:40 Urine Blood (Auto) 25 Nehemias/uL 01/17/24 14:40 Urine Nitrite (Auto) Negative 01/17/24 14:40 Urine Bilirubin (Auto) 0 mg/dL 01/17/24 14:40 Urine Urobilinogen (Auto) 0.2 mg/dL 01/17/24 14:40 Leukocyte Esterase (Auto) 0 Jimi/uL 01/17/24 14:40 Assessment & Plan Assessment & Plan (1) Prostatitis: Code(s): N41.9 - Inflammatory disease of prostate, unspecified (2) Dysuria: Code(s): R30.0 - Dysuria Plan In office urinalysis results reviewed with the patient today; as noted above. Discussed at length potential causes of prostatitis. Will obtain retroperitoneal ultrasound for further assessment evaluation. Discussed bladder triggers/irritants. Discussed, educated, and stressed the importance of drinking plenty of water daily. Patient currently denies any bothersome urinary issues or concerns. He is happy with his current voiding parameters. Follow-up in 1-3 months with imaging to be completed prior; or sooner with any issues, concerns, and or questions. Orders: Orders AMB Urinalysis Automated Today R33.9 - Retention of urine, unspecified US retroperitoneal comp Today N41.9 - Inflammatory disease of prostate, unspecified, R30.0 - Dysuria Patient Instructions: The patient had an opportunity to ask questions regarding the treatment plan. All questions were answered. Physical exam, labs, and imaging were discussed and reviewed in detail. As well as risks, benefits, and discussion of treatment choices. No major barriers to understanding were identified. The patient expressed understanding and agreement with the above treatment plan. The patient was made aware they should contact our office by phone for worsening of their current condition, the appearance of new symptoms, or with any questions or concerns. Compliance is encouraged with any medications and follow up testing that is ordered. It is a privilege to be allowed the opportunity to participate in? your urological care.? Again, if you have any questions or concerns If you have any questions or concerns please do not hesitate to contact me. The office is [phone]. This note is constructed using voice recognition software. While every effort has been made to ensure accuracy educational program director errors may have been included. Yours sincerely, LEIGHTON Austin Coding Level of Care Code New Pt Level 3 (71485) Diagnoses Prostatitis N41.9 Dysuria R30.0
== END 2024-01-17 15:11 | disposition home or self-care (01) ==
PROVIDERS: PCP Internal Medicine; Visit Provider Nurse Practitioner Family
DX: N41.9 Inflammatory disease of prostate, unspecified (principal); R30.0 Dysuria
CPT/HCPCS: 99203

== ENCOUNTER → 2024-01-17 14:22 | Outpatient (BNVA) | payer MEDICAID, SELFPAY | PROVIDERS: PCP Internal Medicine; Visit Provider Nurse Practitioner Family | DX: N41.9 Inflammatory disease of prostate, unspecified (principal); R30.0 Dysuria | CPT/HCPCS: 81003; 99212 ==

== ENCOUNTER 2024-01-27 10:39 | Day surgery (SDC) | payer MEDICAID, SELFPAY ==
[2024-01-25 09:08] VITALS: BMI 21.8
--- NOTE | 2024-01-26 12:24 | MHC.SHP ---
Pre-Procedural Eval Section A - 24 Hr Update-Section A only Date of Service: 01/26/24 The patient is an INPATIENT: No Changes since office visit: No Cold of Flu in the past 2 weeks, No New Medical Problems, No Changes in Medication and No Patient answered all questions Section B - Complete if H&P > 30 days Chief Complaint: Unilateral inguinal hernia, without obstruction or Allergies: Allergies Allergy/AdvReac Type Severity Reaction Status Date / Time No Known Allergies Allergy Verified 01/17/24 22:19 Plan I have reviewed the history and physical and performed a pertinent physical examination on my patient. No changes have occurred unless specified. Time Spent With Patient Time: Total time managing care of this patient today ____ minutes.
--- NOTE | 2024-01-26 14:23 | P.CONAN_ITS ---
Documented by User: Carly Tapia NP 01/26/24 14:24 HPI - Anesthesia Eval Consult details Narrative: 43yo M for Left Open Hernia Inguinal Reducible Repair with Mesh PMFSH Active Problems Active Problems: All Active Problems (Updated 01/17/24 @ 15:05 by LEIGTHON Austin) Dysuria (Acute) Prostatitis (Acute) Left inguinal hernia (Acute) Deviated septum (Acute) Environmental allergies (Acute) Asthma (Acute) Pulmonary nodule (Acute) Reactive airway disease (Acute) ILD (interstitial lung disease) (Acute) Obstructive sleep apnea (Acute) Dyspnea on exertion (Acute) Helicobacter pylori (H. pylori) (Acute) Chest pain (Acute) Palpitations (Acute) Past Medical History Medical History (Updated 01/17/24 @ 15:05 by LEIGHTON Austin) Asthma History of sleep study Helicobacter pylori (H. pylori) Chest pain Palpitations Family History Family History Father Hypertension Cardiovascular disease Family history of problems with anesthesia: No Surgical History Surgical History (Updated 01/25/24 @ 09:06 by Rocio Kasper RN) History of esophagogastroduodenoscopy (EGD) Hx of colonoscopy History of Problems with Anesthesia: No Social History Social History Do you presently have visiting nurse or other home services: No Alcohol intake: former Patient Tobacco Use Status: Never used Tobacco Use of substances other than those prescribed or required for medical reasons: No Are you DNR?: No Advance Directives: No Advance Directives Information Provided: Yes Meds Allergies Allergy/AdvReac Type Severity Reaction Status Date / Time No Known Allergies Allergy Verified 01/17/24 22:19 Home Medications Medication Instructions Recorded Confirmed Last Taken Type albuterol sulfate 90 mcg/actuation 2 puff inhalation Q4-6H PRN 12/11/20 06/09/22 Unknown History aerosol inhaler Shortness Of Breath budesonide-formoterol HFA 160 2 puff PO BID 12/11/20 01/27/24 01/27/24 History mcg-4.5 mcg/actuation aerosol inhaler hydrochlorothiazide 12.5 mg capsule 25 mg PO DAILY 06/09/22 01/25/24 Unknown History hydroxyzine HCl 25 mg tablet 25 mg PO BID 01/17/24 01/25/24 Unknown History Exam Height,Weight and Vital Signs: Height 6 ft Weight 73.028 kg Assessment and Plan Assessment Anesthesia Assessment: Chart Reviewed Final Anesthetic Review Family History of Problems with Anesthesia: No History of Problems with Anesthesia: No Documented by User: Shmuel Goddard MD 01/27/24 13:35 [facility] Past Medical History Medical History (Updated 01/17/24 @ 15:05 [facility] Asthma History of sleep study Helicobacter pylori (H. pylori) Chest pain Palpitations Family History Family History Father Hypertension Cardiovascular disease Surgical History Surgical History (Updated 01/25/24 @ 09:06 by Rocio Kasper RN) History of esophagogastroduodenoscopy (EGD) Hx of colonoscopy Social History Social History Do you presently have visiting nurse or other home services: No Alcohol intake: former Patient Tobacco Use Status: Never used Tobacco Use of substances other than those prescribed or required for medical reasons: No Are you DNR?: No Advance Directives: No Advance Directives Information Provided: Yes Meds Allergies Allergy/AdvReac Type Severity Reaction Status Date / Time No Known Allergies Allergy Verified 01/17/24 22:19 Home Medications Medication Instructions Recorded Confirmed Last Taken Type albuterol sulfate 90 mcg/actuation 2 puff inhalation Q4-6H PRN 12/11/20 06/09/22 Unknown History aerosol inhaler Shortness Of Breath budesonide-formoterol HFA 160 2 puff PO BID 12/11/20 01/27/24 01/27/24 History mcg-4.5 mcg/actuation aerosol inhaler hydrochlorothiazide 12.5 mg capsule 25 mg PO DAILY 08/03/22 03/20/24 Unknown History hydroxyzine HCl 25 mg tablet 25 mg PO BID 01/17/24 01/25/24 Unknown History Exam Airway Mallampati Class: II TM Dist: >3cm Neck ROM: Full Assessment and Plan Assessment Anesthesia Assessment: Anesthesia Plan Discussed Final Anesthetic Review NPO: Yes ASA Class: II Final Preanesthetic Review: No Changes in Pt Med Stat, Meds/Allgs Chart Reviewed, Consent Obtained/Reviewed and Anes Risks/Benef Reviewed Patient Risk: Intermediate Procedure Risk: Intermediate Anesthetic Plan Anesthetic Plan: GA Disposition: Standard PACU
[2024-01-27] VITALS (7 sets, daily range): BP systolic 104–147; BP diastolic 66–90; PULSE 52–66; RESP 12–16; TEMP 36.2–36.9; O2SAT 95–100; BMI 22.8
[2024-01-27] MEDS: Lactated Ringers 1,000 ML 100 ML IVCONT (12:26)
--- NOTE | 2024-01-27 15:05 | P.OP_ITS ---
Operative Note Operative Note Date of Service: 01/27/24 Narrative: Preoperative diagnosis: [] Symptomatic left inguinal hernia Postop diagnosis: [] The same Procedure [] open repair left inguinal hernia with Bard mesh Surgeon: [] Clem Minesweeping Officer: [] Judy Type of Anesthesia: [] MAC Indication for surgery: [] Large direct left inguinal hernia. No indirect hernia demonstrated Findings: [] Patient brought to the operating room, placed on operative table in supine position, after adequate level of MAC anesthesia was induced, the left groin was prepped and draped in usual sterile fashion. Ilioinguinal block followed by infiltration of the incision with 1% lidocaine/0.5% Marcaine was performed. A small left para inguinal incision was made and carried down through skin, subcutaneous tissue, Jing's fascia. External oblique fibers were opened their direction with care to isolate and preserve the ilioinguinal nerve throughout the procedure. Spermatic cord was identified and retracted from the field. Exploration of the cord demonstrated no indirect hernia. Large indirect hernia sac was identified and reduced. A Bard plug was placed in this defect, and this was sutured inferiorly to the inguinal ligament, and superiorly to the transversalis fascia using interrupted 0 Ethibond suture. At completion the procedure, was irrigated, secured hemostasis, and closed in the following manner; external oblique fascia was closed using running 2-0 Vicryl suture. Jing's fascia was reapproximated using interrupted 3-0 Vicryl suture. Interrupted inverted deep dermal 3-0 Vicryl sutures followed by running subcuticular 4-0 Vicryl sutures were placed. Steri-Strips and sterile dressings were applied. Sponge, needle, and instrument counts were reported correct. Patient tolerated procedure well and emerged from anesthesia stable condition. EBL minimal. Ipsilateral testicle was intrascrotal at completion.
== END 2024-01-27 16:17 | disposition home or self-care (01) ==
PROVIDERS: PCP Internal Medicine; Visit Provider Surgery
PROC: (CPT 49505; principal; 2024-01-27 13:20)
DX: K40.90 Unilateral inguinal hernia, without obstruction or gangrene, not specified as recurrent (principal); J45.909 Unspecified asthma, uncomplicated; R00.2 Palpitations; G47.33 Obstructive sleep apnea (adult) (pediatric); Z79.899 Other long term (current) drug therapy
CPT/HCPCS: 49505; C1781; J0690; J2250; J2704; J2795; J3010

== ENCOUNTER → 2024-01-27 10:39 | Outpatient (BNV) | payer MEDICAID, SELFPAY | PROVIDERS: PCP Internal Medicine; Visit Provider Surgery | DX: K40.90 Unilateral inguinal hernia, without obstruction or gangrene, not specified as recurrent (principal) | CPT/HCPCS: 49505 ==

== ENCOUNTER 2024-02-06 11:25 | Outpatient (AMB) | payer MEDICAID, SELFPAY ==
[2024-02-06 11:38] VITALS: BP 151/85; PULSE 74
--- NOTE | 2024-02-06 11:38 | A.OFFVIS_ITS ---
Intake Vital Signs 02/06/24 11:38 Weight 161 lb BP 151/85 H Blood Pressure Location Rt brachial Position Sitting Pulse 74 Intake Visit Reasons: S/P LIH w/mesh Intake Note: Patient here s/p LIH w/mesh. Reports incisions healing well. Patient c/o: Lt lower abd pain that feels like a sharp discomfort. Still taking rx pain meds. SX: 01-27-24. 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 Doing well. Tolerating diet. Having regular bowel habits. Increase activity level. Still has incisiona discomfort which is improving. [facility] Medical History Asthma History of sleep study Helicobacter pylori (H. pylori) Chest pain Palpitations Surgical History Left inguinal hernia (01/27/24) History of esophagogastroduodenoscopy (EGD) Hx of colonoscopy Family History Father Hypertension Cardiovascular disease Social History Do you presently have visiting nurse or other home services: No Alcohol intake: former Comment: counts correct Patient Tobacco Use Status: Never used Tobacco Physical Exam Vital Signs: Last Vital Signs Pulse 74 02/06/24 11:38 BP 151/85 H 02/06/24 11:38 GI Other: Abdomen is soft. Wound clean dry and intact healing well Assessment & Plan Assessment & Plan (1) Status post hernia repair: Code(s): Z98.890 - Other specified postprocedural states; Z87.19 - Personal history of other diseases of the digestive system Plan Patient has been given local instructions, and will follow-up p.r.n.. All questions answered. He will be given note for off time and then light duty when he re -commences work Coding Level of Care Code Global (63023) Diagnoses Status post hernia repair Z98.890; Z87.19
== END 2024-02-06 11:44 | disposition home or self-care (01) ==
PROVIDERS: PCP Internal Medicine; Visit Provider Surgery
DX: Z98.890 Other specified postprocedural states (principal); Z87.19 Personal history of other diseases of the digestive system
CPT/HCPCS: 99024

== ENCOUNTER → 2024-02-06 11:25 | Outpatient (BNVA) | payer MEDICAID, SELFPAY | PROVIDERS: PCP Internal Medicine; Visit Provider Surgery | DX: Z48.815 Encounter for surgical aftercare following surgery on the digestive system (principal); Z87.19 Personal history of other diseases of the digestive system; Z98.890 Other specified postprocedural states | CPT/HCPCS: 99212 ==

== ENCOUNTER 2024-03-02 09:24 | Outpatient (REF) | payer MEDICAID, SELFPAY ==
--- NOTE | ~2024-03-02 | US_ITS ---
EXAMINATION: US RETROPERITONEAL LIMITED (RENAL ONLY) CLINICAL INFORMATION: Inflammatory disease of the prostate, unspecified. COMPARISON: None available. TECHNIQUE: Real-time imaging of the kidneys. FINDINGS: RIGHT KIDNEY: 11.4 x 4.4 x 4.5 cm (SAG x AP x TRV). The kidney is normal in size, contour, and echogenicity. Renal cortical thickness is normal. No calculi or focal parenchymal lesions. No hydronephrosis. LEFT KIDNEY: 11.3 x 5.4 x 4.2 cm (SAG x AP x TRV). The kidney is normal in size, contour, and echogenicity. Renal cortical thickness is normal. No renal calculi or hydronephrosis. Questionable 3 mm nonobstructing calculus in the lower pole. US/US renal BI IMPRESSION: Questionable 3 mm nonobstructing calculus in the lower pole. No hydronephrosis.
== END 2024-03-02 09:25 | disposition home or self-care (01) ==
LOC: HO.US 09:24
PROVIDERS: PCP Internal Medicine; Visit Provider Nurse Practitioner Family
DX: N41.9 Inflammatory disease of prostate, unspecified (principal); R30.0 Dysuria
CPT/HCPCS: 76775

== ENCOUNTER 2024-03-05 11:40 | Outpatient (REF) | payer MEDICAID, SELFPAY ==
--- NOTE | ~2024-03-05 | US_ITS ---
EXAMINATION: US PELVIS LIMITED (BLADDER) CLINICAL INFORMATION: Dysuria. COMPARISON: None available. TECHNIQUE: Real-time imaging of the bladder. FINDINGS: BLADDER: Well-distended and unremarkable. Bilateral ureteral jets are demonstrated. Prevoid bladder volume is 742.60 mL. Postvoid bladder volume is 71.15 mL. Prostate volume 23.7 mL. US/US bladder IMPRESSION: Postvoid bladder volume 71.15 mL.
== END 2024-03-05 11:41 | disposition home or self-care (01) ==
LOC: HO.US 11:40
PROVIDERS: PCP Internal Medicine; Visit Provider Nurse Practitioner Family
DX: N41.9 Inflammatory disease of prostate, unspecified (principal); R30.0 Dysuria
CPT/HCPCS: 76857

== ENCOUNTER 2024-05-18 10:32 | Outpatient (AMB) | payer MEDICAID, SELFPAY ==
--- NOTE | 2024-05-18 10:53 | A.OFFVIS_ITS ---
Intake Visit Reasons: 1m/US Intake Note: Patient presents today for follow up on: Recurrent Prostatitis and ultrasound results Imaging Completed: 03/02/24 & 03/05/24 Urology Medications: None Allergies to Antibiotic: No Known Allergies Blood Thinner: None Gas Manager Required: Yes Gas Manager Name: CHERRI BOLDEN Accompanied by: Self / Same As Patient Allergies No Known Allergies Allergy (Verified 05/18/24 11:22) Medication List - Last Reconciled 05/18/24 by BERNARD Austin- albuterol sulfate 90 mcg/actuation 2 puffs inhalation Q4-6H PRN budesonide-formoterol 160-4.5 mcg/actuation 2 puffs PO BID hydrochlorothiazide 25 mg PO DAILY hydrocodone-acetaminophen 5-325 mg 1 tab PO Q4-6H PRN hydroxyzine HCl 25 mg PO BID pantoprazole 40 mg PO DAILY HPI Comments Details: Collin is a very pleasant 43-year-old Tanzanian-speaking male patient of Dr. Neptali Martinez. He has a past medical history of asthma, H pylori, in palpitations. He presents to the office today for follow-up. Of note, patient was seen approximately 4 months ago as a new patient for prostatitis at which time a retroperitoneal ultrasound was ordered for further assessment evaluation. These results reviewed with the patient today. Bilateral kidneys with no lesions and or hydronephrosis. Left kidney with questionable 3 mm nonobstructing calculus in the lower pole. The bladder is well distended and unremarkable. Bilateral ureteral jets are demonstrated. Pre void bladder volume is approximately 750 mL. Postvoid bladder volume is approximately 70 mLs. Prostate volume 24 mL. In discussion with the patient today he reports to be doing and feeling well. He denies any bothersome urinary issues or concerns. He reports lower urinary tract symptoms he had been experiencing has since completely subsided. He denies denies urinary urgency, urinary frequency, incontinence, nocturia, hematuria, foul smelling urine, changes to urinary stream, flank pain, fever, and or chills. He is happy with his current voiding parameters. Discussed at length potential causes of prostatitis. In office urinalysis results reviewed with the patient today. He otherwise offers no other issues or concerns at this time. [facility] Medical History Asthma History of sleep study Helicobacter pylori (H. pylori) Chest pain Palpitations Surgical History Left inguinal hernia (01/27/24) History of esophagogastroduodenoscopy (EGD) Hx of colonoscopy Family History Father Hypertension Cardiovascular disease Social History Do you presently have visiting nurse or other home services: No Alcohol intake: former Comment: counts correct Patient Tobacco Use Status: Never used Tobacco Review of Systems Const Reports no additional complaints Eyes Reports no additional complaints ENT Reports no additional complaints Card Reports as per HPI Resp Reports as per HPI GI Reports as per HPI Reports as per HPI Musc Reports no additional complaints Neuro Reports no additional complaints Psych Reports no additional complaints Endo Reports no additional complaints Mo/Lymph Reports no additional complaints Aller/Immun Reports no additional complaints Physical Exam Const General: cooperative, healthy appearing, comfortable, no acute distress, well developed, alert and awake Nutritional Appearance: average body habitus Orientation/consciousness: patient oriented x3 Limitations: no limitations HEENT Head: Yes normal to inspection, Yes normocephalic and Yes atraumatic Ears: hearing grossly normal bilaterally Eyes General: appearance normal, both eyes and all related structures Neck Neck: Yes normal visual inspection and Yes trachea midline Chest Chest palpation & inspection: normal inspection of the chest Resp Effort & Inspection: normal respiratory effort and able to speak in complete sentences Cardio Rate: regular rate GI Inspection: Yes normal to inspection General: Yes no CVA tenderness Back/Spine/Pelvis Back: no CVA tenderness Skin General skin exam: no rashes or lesions noted Neuro General: patient oriented x3 Extrem General: Yes normal to inspection Psych Appearance: grossly normal and well kempt Mental Status: mental status grossly normal Speech and movement: Normal speech and movement present and Clear speech present Affect: normal affect Attitude: cooperative Thought process: Normal thought process present Thought content: Normal thought content present Insight: Fair insight present (Psych) Judgement: Fair judgement present (Psych) Results AMB Urinalysis, Automated UA Leukoctes 0 Jimi/uL Last Edit by Valeriy Castillo on 05/18/24 11:13 UA Nitrite Negative Last Edit by Valeriy Castillo on 05/18/24 11:13 UA Urobilinogen 0.2 mg/dL Last Edit by [employer] on 05/18/24 11:13 UA Protein 0 mg/dL Last Edit by [employer] on 05/18/24 11:13 UA pH 6.0 Last Edit by [employer] on 05/18/24 11:13 UA Blood 10 Nehemias/uL Last Edit by [employer] on 05/18/24 11:13 UA Specific [place] 1.005 Last Edit by [employer] on 05/18/24 11:13 UA Ketone Negative Last Edit by [employer] on 05/18/24 11:13 UA Bilirubin 0 mg/dL Last Edit by [employer] on 05/18/24 11:13 UA Glucose 0 mg/dL Last Edit by [employer] on 05/18/24 11:13 Results Reviewed Results Reviewed: Laboratory Last Values Urine pH (Auto) 6.0 05/18/24 11:12 Specific [place] (Auto) 1.005 05/18/24 11:12 Urine Protein (Auto) 0 mg/dL 05/18/24 11:12 Glucose (UA)(Auto) 0 mg/dL 05/18/24 11:12 Urine Ketones (Auto) Negative 05/18/24 11:12 Urine Blood (Auto) 10 Nehemias/uL 05/18/24 11:12 Urine Nitrite (Auto) Negative 05/18/24 11:12 Urine Bilirubin (Auto) 0 mg/dL 05/18/24 11:12 Urine Urobilinogen (Auto) 0.2 mg/dL 05/18/24 11:12 Leukocyte Esterase (Auto) 0 Jimi/uL 05/18/24 11:12 Date of Service: 03/02/24 EXAMINATION: US RETROPERITONEAL LIMITED (RENAL ONLY) FINDINGS: RIGHT KIDNEY: 11.4 x 4.4 x 4.5 cm (SAG x AP x TRV). The kidney is normal in size, contour, and echogenicity. Renal cortical thickness is normal. No calculi or focal parenchymal lesions. No hydronephrosis. LEFT KIDNEY: 11.3 x 5.4 x 4.2 cm (SAG x AP x TRV). The kidney is normal in size, contour, and echogenicity. Renal cortical thickness is normal. No renal calculi or hydronephrosis. Questionable 3 mm nonobstructing calculus in the lower pole. IMPRESSION: Questionable 3 mm nonobstructing calculus in the lower pole. No hydronephrosis. Date of Service: 03/05/24 EXAMINATION: US PELVIS LIMITED (BLADDER) FINDINGS: BLADDER: Well-distended and unremarkable. Bilateral ureteral jets are demonstrated. Prevoid bladder volume is 742.60 mL. Postvoid bladder volume is 71.15 mL. Prostate volume 23.7 mL. IMPRESSION: Postvoid bladder volume 71.15 mL. Assessment & Plan Assessment & Plan (1) Prostatitis: Code(s): N41.9 - Inflammatory disease of prostate, unspecified Category: Medical (2) Dysuria: Code(s): R30.0 - Dysuria Category: Medical (3) Nephrolithiasis: Code(s): N20.0 - Calculus of kidney Category: Medical Plan In office urinalysis results reviewed with the patient today; as noted above. Discussed at length potential causes of prostatitis. Discussed at length importance of hydration relation to history of prostatitis and potential nephrolithiasis. Recent retroperitoneal ultrasound results reviewed with the patient today; as noted above. Patient currently denies any bothersome urinary issues or concerns. He reports be happy with current voiding parameters. Discussed adding 1 oz of lemon juice to water daily. Will obtain renal ultrasound in 1 year. Follow-up in 1 year with imaging to be completed prior; or sooner with any issues, concerns, and or questions.s. Orders: Orders AMB Urinalysis Automated 05/18/24 Z13.9 - Encounter for screening, unspecified US renal BI 1 Year N20.0 - Calculus of kidney Medications: Discontinued hydrocodone-acetaminophen 5-325 mg Partial Fill upon patient request. Discontinued Reason: Patient Completed Course 1 tab PO Q4-6H PRN 30 tabs 0RF pain Patient Instructions: The patient had an opportunity to ask questions regarding the treatment plan. All questions were answered. Physical exam, labs, and imaging were discussed and reviewed in detail. As well as risks, benefits, and discussion of treatment choices. No major barriers to understanding were identified. The patient expressed understanding and agreement with the above treatment plan. The patient was made aware they should contact our office by phone for worsening of their current condition, the appearance of new symptoms, or with any questions or concerns. Compliance is encouraged with any medications and follow up testing that is ordered. It is a privilege to be allowed the opportunity to participate in? your urological care.? Again, if you have any questions or concerns If you have any questions or concerns please do not hesitate to contact me. The office is [phone]. This note is constructed using voice recognition software. While every effort has been made to ensure accuracy stoker installer errors may have been included. Yours sincerely, LEIGHTON Austin Coding Level of Care Code Est Pt Level 3 (52210) Diagnoses Prostatitis N41.9 Dysuria R30.0 Nephrolithiasis N20.0
== END 2024-05-18 11:40 | disposition home or self-care (01) ==
PROVIDERS: PCP Internal Medicine; Visit Provider Nurse Practitioner Family
DX: Z13.9 Encounter for screening, unspecified (principal)
CPT/HCPCS: 99213

== ENCOUNTER → 2024-05-18 10:32 | Outpatient (BNVA) | payer MEDICAID, SELFPAY | PROVIDERS: PCP Internal Medicine; Visit Provider Nurse Practitioner Family | DX: N41.9 Inflammatory disease of prostate, unspecified (principal); N20.0 Calculus of kidney; R30.0 Dysuria | CPT/HCPCS: 81003; 99212 ==

== ENCOUNTER 2024-06-28 08:59 | Outpatient (REF) | payer MEDICAID, SELFPAY ==
[2024-06-28 11:54] LABS: MANUAL DIFF FLAG NO
[2024-06-28 12:17] LABS: Basophils Percent Auto 0.3 % (0-2); Eosinophils Absolute Auto 0.2 X10*3/uL (0.0-0.4); Eosinophils Percent Auto 2.5 % (0-4); Hematocrit 48.3 % (42.0-52.0); Hemoglobin 16.1 g/dl (14.0-18.0); Imm Gran Abs Auto 0.02 X10*3/uL (0.00-0.03); Imm Gran Pct Auto 0.2 % (0.0-0.4); Lymphocytes Absolute Auto 2.5 X10*3/uL (1.2-4.9); Lymphocytes Percent Auto 29.4 % (20-40); Mean Corpuscular HGB Conc 33.3 g/dl (31.0-36.0); Mean Corpuscular Hemoglobin 31.3 pg (27.0-33.0); Mean Platelet Volume 10.7 fL (9.4-12.4); Monocytes Absolute Auto 0.5 X10*3/uL (0.1-1.2); Monocytes Percent Auto 6.2 % (2-11); Neutrophils Absolute Auto 5.3 x10*3/uL (2.0-8.3); Neutrophils Percent Auto 61.4 % (45-73); Platelet Count 343 X10*3/uL (160-400); Red Blood Count 5.14 X10*6/uL (4.60-5.80); Red Cell Distribution Width 12.4 % (11.0-16.0); White Blood Count 8.7 X10*3/uL (4.8-10.8)
[2024-06-28 12:33] LABS: Anion Gap 13 (12-20); Blood Urea Nitrogen 20 mg/dL (9-16); Calcium 10.5 mg/dL (8.4-10.2); Carbon Dioxide 32 mmol/L (22-29); Chloride 102 mmol/L (96-108); Estimated Glomerular Filt Rate > 60; Glucose Random 109 mg/dL (60-115); Potassium 4.1 mmol/L (3.3-5.1); Sodium 143 mmol/L (135-145)
[2024-06-28 12:56] LABS: TSH reflex Free T4 1.65 uIU/mL (0.32-4.0)
== END 2024-06-28 09:00 | disposition home or self-care (01) ==
LOC: HO.HHCL 08:59
PROVIDERS: Visit Provider Internal Medicine
DX: R07.89 Other chest pain (principal); F41.9 Anxiety disorder, unspecified
CPT/HCPCS: 36415; 80048; 84443; 85025

== ENCOUNTER 2024-07-10 13:24 | Outpatient (AMB) | payer MEDICAID, SELFPAY ==
[2024-07-10 13:36] VITALS: BP 122/90; PULSE 77; BMI 22.3
--- NOTE | 2024-07-10 13:36 | MHC.OFFVIS ---
Vital Signs 07/10/24 13:36 Height 6 ft Weight 164 lb 7.437 oz BMI 22.3 BP 122/90 H Blood Pressure Location Lt brachial Position Sitting Pulse 77 Pulse Source Monitor Intake Visit Reasons: bmc f/u km pt Wood Tank Builder Required: Yes Wood Tank Builder Language: Sequencing Machine Operator Name: ivan [id number] radha cannon Allergies No Known Allergies Allergy (Verified 07/10/24 13:39) Medication List - Last Reconciled 07/10/24 by MONA SuarezC albuterol sulfate 90 mcg/actuation 2 puffs inhalation Q4-6H PRN budesonide-formoterol 160-4.5 mcg/actuation 2 puffs PO BID hydrochlorothiazide 25 mg PO DAILY hydroxyzine HCl 25 mg PO BID pantoprazole 40 mg PO DAILY HPI HPI [facility] f/u km pt: Details: Collin is a 43-year-old male with past medical history of interstitial lung disease, sleep apnea, GERD, prior evaluation for chest discomfort and palpitations without cardiac findings who was recently seen in the [facility] Emergency room for chest pain, shortness of breath and dizziness. He ruled out for ACS. He was referred back to Cardiology in follow-up. His last prior visit to our office was 12/11/2020. Will be a new patient today. Today he reports that he has been getting pressure in his chest at rest and when doing physical activity. As it comes and goes without any clear pattern. On the day of the ER visit he was also having shortness of breath and some lightheadedness. His breathing usually is good. He has not had any recurrent lightheadedness, and no presyncope, syncope, falls. At times he will feel his heart beating fast and hard. Other times he notices his heart is going very slow. He denies having any concerning symptoms at the time of this visit. 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 He has not been diagnosed with any heart conditions. He expresses concern cause his father had heart issues starting in his 50s. He does not drink or smoke. He takes his medications as directed. [facility] Medical History Asthma History of sleep study Helicobacter pylori (H. pylori) Chest pain Palpitations Surgical History Left inguinal hernia (01/27/24) History of esophagogastroduodenoscopy (EGD) Hx of colonoscopy Family History Father Hypertension Cardiovascular disease Social History Do you presently have visiting nurse or other home services: No Alcohol intake: former Comment: counts correct Patient Tobacco Use Status: Never used Tobacco Review of Systems Const All systems reviewed & are unremarkable except as noted in HPI and below ENT Denies dizziness Card Reports chest pain, Reports chest pain at rest, Reports chest pain with activity, Reports rapid heart rate, Denies pedal edema, Denies edema, Denies leg edema, Denies lightheadedness, Denies palpitations, Reports dyspnea, Denies dyspnea on exertion and Denies orthopnea Resp Denies cough, Reports dyspnea and Denies dyspnea on exertion GI Denies hematochezia and Denies change in stool character Musc Denies abnormal gait, Denies limited range of motion, Denies muscle cramps, Denies muscle weakness, Denies numbness, Denies radiating pain into limb, Denies stiffness and Denies tingling Neuro Denies abnormal gait, Denies dizziness, Denies numbness and Denies tingling Endo Denies palpitations Physical Exam Vital Signs: Last Vital Signs Pulse 77 07/10/24 13:36 BP 122/90 H 07/10/24 13:36 BMI result Body Mass Index 22.3 Const General: cooperative, healthy appearing, comfortable and no acute distress Orientation/consciousness: patient oriented x3 Neck Neck: Yes normal visual inspection and Yes no JVD Resp Effort & Inspection: normal respiratory effort Auscultation: clear to auscultation bilaterally, no crackles, no rales, no rhonchi and no wheezes Cardio Jugular venous distension: no JVD Rate: regular rate Rhythm: regular rhythm Heart sounds: S1 normal heart sound present, S2 normal heart sound present, no murmurs and no rubs Neuro General: patient oriented x3 Extrem General: Yes normal to inspection, No no pedal edema and No calf tenderness Psych Appearance: grossly normal Mental Status: mental status grossly normal Speech and movement: Normal speech and movement present Office Procedures EKG Details: Today read by me normal sinus rhythm, moderate voltage for LVH, nonspecific ST abnormality, rate 77, QTC 468 millisecond [id number], Complete Assessment & Plan Assessment & Plan (1) Chest pain: Code(s): R07.9 - Chest pain, unspecified Category: Medical Qualifiers: Chest pain type: unspecified Qualified Code(s): R07.9 - Chest pain, unspecified Plan: Reports of intermittent chest discomfort, occurring at rest and with activity. Atypical for angina. History of GERD which can be contributing. Cardiac risks of family history. ER evaluation for chest discomfort, shortness of breath and lightheadedness without acute findings. EKG done today showing normal sinus rhythm with no acute ST or T-wave abnormalities, rate 77. Echocardiogram was done 09/19/2020 which was a normal study. Will check an exercise stress test to evaluate for ischemia. Signs and symptoms of angina reviewed with him. Emergency care if needed for symptoms. Cardiology follow-up when test results available. (2) Palpitations: Code(s): R00.2 - Palpitations Category: Medical Plan: Reports of heart palpitations where he feels his heart is going fast at times and slow at other times. He did have a Holter monitor 09/19/2020 showing sinus bradycardia with average heart rate 56, 60% of the time less than 60. His PCP has already ordered a Holter monitor which he is having applied on 07/13/24. Will plan to review those results once available. Plan Time spent on chart review, documentation, interview and assessment Orders: Orders CA stress test Today R07.9 - Chest pain, unspecified Coding Level of Care Code New Pt Level 3 (33139) Diagnoses Chest pain, unspecified type R07.9 Chest pain type: unspecified Palpitations R00.2 CPT Codes EKG - CPT: [id number], Complete ([id number]) Time Spent (min) 24
== END 2024-07-10 14:16 | disposition home or self-care (01) ==
PROVIDERS: PCP Internal Medicine; Visit Provider Nurse Practitioner Family
DX: R07.9 Chest pain, unspecified (principal); R00.2 Palpitations
CPT/HCPCS: 93010; 99203

== ENCOUNTER → 2024-07-10 13:24 | Outpatient (BNVA) | payer MEDICAID, SELFPAY | PROVIDERS: PCP Internal Medicine; Visit Provider Nurse Practitioner Family | DX: R07.9 Chest pain, unspecified (principal); R00.2 Palpitations | CPT/HCPCS: 93005; 99212 ==

== ENCOUNTER → 2024-07-13 11:04 | Outpatient (REF) | payer MEDICAID, SELFPAY ==
--- NOTE | 2024-07-13 11:10 | HM_ITS ---
* Total monitoring time 1 day. * Underlying rhythm is sinus with an average rate of 64/Min. * About 44% of the time, rate < 60/Min. * Rare supraventricular and ventricular ectopy. * No significant pauses or AV blocks. * No patient markers or diary events. MTDD
== END ==
LOC: HO.CARD 11:04
PROVIDERS: Visit Provider Internal Medicine
DX: R07.89 Other chest pain (principal)
CPT/HCPCS: 93225

== ENCOUNTER → 2024-07-13 11:10 | Outpatient (BNV) | payer MEDICAID, SELFPAY | PROVIDERS: Visit Provider Internal Medicine | DX: I47.10 Supraventricular tachycardia, unspecified (principal) | CPT/HCPCS: 93227 ==

== ENCOUNTER → 2024-08-02 07:42 | Outpatient (REF) | payer MEDICAID, SELFPAY ==
--- NOTE | 2024-08-02 07:44 | CA_ITS ---
Acquisition Time: 2024-08-02 08:24:54 Total Exercise Time: 00:10:03 Test Indications: CHEST PAIN Medications: SEE MED SHEET Protocol: ALICE Max HR: 171 BPM 96% of Pred: 177 BPM Max BP: 152/084 mmHG Max Work Load: 11.8 METS Exercise stress test exercise 10 min 3 sec of Alice protocol achieving 96% MPHR, without anginal symptoms, with isolated PAC ventricular cuplet, with normotesnive response to exercise, without EKG changes. Test reviewed with Dr. Manuel. Referred By: Karen Schmitt Overread By: Alyssa Sahni
== END ==
LOC: HO.CARD 07:42
PROVIDERS: PCP Internal Medicine; Visit Provider Nurse Practitioner Family
DX: R07.9 Chest pain, unspecified (principal)
CPT/HCPCS: 93017

== ENCOUNTER → 2024-08-02 07:44 | Outpatient (BNV) | payer MEDICAID, SELFPAY | PROVIDERS: PCP Internal Medicine; Visit Provider Nurse Practitioner | DX: I49.3 Ventricular premature depolarization (principal) | CPT/HCPCS: 93016; 93018 ==

== ENCOUNTER 2024-10-18 15:03 | Outpatient (AMB) | payer MEDICAID, SELFPAY ==
[2024-10-18 15:45] VITALS: BP 120/82; PULSE 65; BMI 23.1
--- NOTE | 2024-10-18 15:45 | MHC.OFFVIS ---
Vital Signs 10/18/24 15:45 Height 6 ft Weight 170 lb 3.15 oz BMI 23.1 BP 120/82 Blood Pressure Location Lt brachial Position Sitting Pulse 65 Pulse Source Pulse Oximeter Intake Visit Reasons: f/up holter/ ett/ Correctional Substance Abuse Counselor Required: Yes Correctional Substance Abuse Counselor Language: Administrative Coordinator Name: voice marroquin [id number] Allergies No Known Allergies Allergy (Verified 10/18/24 15:47) Medication List - Last Reconciled 10/18/24 by KILO Suarez albuterol sulfate 90 mcg/actuation 2 puffs inhalation Q4-6H PRN budesonide-formoterol 160-4.5 mcg/actuation 2 puffs PO BID hydrochlorothiazide 25 mg PO DAILY hydroxyzine HCl 25 mg PO BID mirtazapine 15 - 45 mg PO BEDTIME PRN pantoprazole 40 mg PO DAILY HPI HPI f/up holter/ ett/: Details: Collin is a 44-year-old male with past medical history of interstitial lung disease, sleep apnea, GERD, prior evaluation for chest discomfort and palpitations without cardiac findings (2020)who was seen in the [facility] Emergency 06/26/2024 room for chest pain, shortness of breath and dizziness. He ruled out for ACS. He was referred back to Cardiology in follow-up. He then underwent an exercise stress test and Holter monitor and now presents for follow-up. Today he reports that his chest pressure has improved overall. He does state that when he has the discomfort there is tenderness in his anterior chest to palpation. He currently feels well with no concerning symptoms. He has not had recurrent issues with shortness of breath or lightheadedness. No presyncope, syncope, falls. He has not had any recent concerning palpitations. 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 [facility] Medical History Asthma History of sleep study Helicobacter pylori (H. pylori) Chest pain Palpitations Surgical History Left inguinal hernia (01/27/24) History of esophagogastroduodenoscopy (EGD) Hx of colonoscopy Family History Father Hypertension Cardiovascular disease Social History Do you presently have visiting nurse or other home services: No Alcohol intake: former Comment: counts correct Patient Tobacco Use Status: Never used Tobacco Review of Systems Const All systems reviewed & are unremarkable except as noted in HPI and below ENT Denies dizziness Card Details: occassional brief heart palpitations Denies chest pain, Denies chest pain at rest, Denies chest pain with activity, Denies rapid heart rate, Denies pedal edema, Denies edema, Denies leg edema, Denies lightheadedness, Denies palpitations, Denies dyspnea, Denies dyspnea on exertion and Denies orthopnea Resp Denies cough, Denies dyspnea and Denies dyspnea on exertion GI Denies hematochezia and Denies change in stool character Musc Denies abnormal gait, Denies limited range of motion, Denies muscle cramps, Denies muscle weakness, Denies numbness, Denies radiating pain into limb, Denies stiffness and Denies tingling Neuro Denies abnormal gait, Denies dizziness, Denies numbness and Denies tingling Endo Denies palpitations Physical Exam Vital Signs: Last Vital Signs Pulse 65 10/18/24 15:45 BP 120/82 10/18/24 15:45 BMI result Body Mass Index 23.1 Const General: cooperative, healthy appearing, comfortable and no acute distress Orientation/consciousness: patient oriented x3 Neck Neck: Yes normal visual inspection and Yes no JVD Resp Effort & Inspection: normal respiratory effort Auscultation: clear to auscultation bilaterally, no crackles, no rales, no rhonchi and no wheezes Cardio Jugular venous distension: no JVD Rate: regular rate Rhythm: regular rhythm Heart sounds: S1 normal heart sound present, S2 normal heart sound present, no murmurs and no rubs Neuro General: patient oriented x3 Extrem General: Yes normal to inspection, No no pedal edema and No calf tenderness Psych Appearance: grossly normal Mental Status: mental status grossly normal Speech and movement: Normal speech and movement present Assessment & Plan Assessment & Plan (1) Chest pain: Code(s): R07.9 - Chest pain, unspecified Category: Medical Qualifiers: Chest pain type: unspecified Qualified Code(s): R07.9 - Chest pain, unspecified Plan: Prior Reports of intermittent chest discomfort, occurring at rest and with activity. Atypical for angina. History of GERD which can be contributing. Cardiac risks of family history. ER evaluation for chest discomfort, shortness of breath and lightheadedness 06/2024 without acute findings. EKG done last visit showed normal sinus rhythm with no acute ST or T-wave abnormalities, rate 77. Echocardiogram was done 09/19/2020 which was a normal study. Exercise stress test done 08/02/2024 with exercise 10 minutes, no anginal symptoms and no EKG changes of ischemia. Holter monitor done 07/13/2024 for 1 day showed sinus rhythm with average heart rate 64, 44% of time heart rate less than 60, rare SVE and VE. Test results reviewed with him in detail. At this time he states his symptoms have improved overall. He will get some chest wall discomfort with tenderness to palpation at times. This symptom remains atypical for angina. Offered reassurance. Signs and symptoms of angina reviewed with him. Emergency care if needed for symptoms. Cardiology follow-up as needed. (2) Palpitations: Code(s): R00.2 - Palpitations Category: Medical Plan: Prior Reports of heart palpitations where he feels his heart is going fast at times and slow at other times. He did have a Holter monitor 09/19/2020 showing sinus bradycardia with average heart rate 56, 60% of the time less than 60. Holter monitor just completed as above showing sinus rhythm with average heart rate 64. He is not on any rate slowing agents. Today he reports his prior palpitations have improved. No specific treatment needed at this time. Plan Time spent on chart review, documentation, interview and assessment Coding Level of Care Code Est Pt Level 3 (70074) Complex EM visit Add On G2211 Diagnoses Chest pain, unspecified type R07.9 Chest pain type: unspecified Palpitations R00.2 Time Spent (min) 24
== END 2024-10-18 16:04 | disposition home or self-care (01) ==
PROVIDERS: PCP Internal Medicine; Visit Provider Nurse Practitioner Family
DX: R07.9 Chest pain, unspecified (principal); R00.2 Palpitations
CPT/HCPCS: 99213

== ENCOUNTER → 2024-10-18 15:03 | Outpatient (BNVA) | payer MEDICAID, SELFPAY | PROVIDERS: PCP Internal Medicine; Visit Provider Nurse Practitioner Family | DX: R07.9 Chest pain, unspecified (principal); R00.2 Palpitations | CPT/HCPCS: 99212 ==

== ENCOUNTER 2025-01-28 11:55 | Outpatient (REF) | payer MEDICAID, SELFPAY ==
[2025-01-28 13:49] LABS: MANUAL DIFF FLAG NO
[2025-01-28 13:55] LABS: Basophils Percent Auto 0.4 % (0-2); Eosinophils Absolute Auto 0.1 X10*3/uL (0.0-0.4); Eosinophils Percent Auto 1.6 % (0-4); Hemoglobin 15.6 g/dl (14.0-18.0); Imm Gran Abs Auto 0.01 X10*3/uL (0.00-0.03); Imm Gran Pct Auto 0.1 % (0.0-0.4); Lymphocytes Absolute Auto 1.8 X10*3/uL (1.2-4.9); Lymphocytes Percent Auto 24.5 % (20-40); Mean Corpuscular HGB Conc 33.2 g/dl (31.0-36.0); Mean Corpuscular Volume 93.3 fL (80.0-98.0); Mean Platelet Volume 10.5 fL (9.4-12.4); Monocytes Absolute Auto 0.4 X10*3/uL (0.1-1.2); Monocytes Percent Auto 4.9 % (2-11); Neutrophils Percent Auto 68.5 % (45-73); Platelet Count 378 X10*3/uL (160-400); Red Blood Count 5.04 X10*6/uL (4.60-5.80); Red Cell Distribution Width 12.6 % (11.0-16.0); White Blood Count 7.3 X10*3/uL (4.8-10.8)
[2025-01-28 14:07] LABS: Estimated Average Glucose 111 mg/dL; Hemoglobin A1C 147.0786 umol/L; Hemoglobin A1c % 5.5 % (<6.0); Total Hemoglobin (HGBA1C) 4008.7993 umol/L
[2025-01-28 14:32] LABS: Erythrocyte Sedimentation Rate 5 MM/HR (0-15)
[2025-01-28 14:33] LABS: Alanine Aminotransferase 39 U/L (0-40); Albumin Level 4.8 g/dL (3.5-5.0); Alkaline Phosphatase 129 U/L (39-117); Anion Gap 11 (12-20); Aspartate Amino Transferase 25 U/L (5-37); Bilirubin Total 0.8 mg/dL (0.0-1.0); Blood Urea Nitrogen 13 mg/dL (9-16); C Reactive Protein 0.12 mg/dL (< or = 0.50); Calcium 9.8 mg/dL (8.4-10.2); Carbon Dioxide 30 mmol/L (22-29); Chloride 104 mmol/L (96-108); Cholesterol 184 mg/dL (<200); Estimated Glomerular Filt Rate > 60; Glucose Random 112 mg/dL (60-115); HDL Cholesterol 35 mg/dL (>40); LDL Cholesterol Calculated 107 mg/dL (<100); Potassium 3.8 mmol/L (3.3-5.1); Sodium 141 mmol/L (135-145); Triglycerides 214 mg/dL (<150)
[2025-01-28 14:49] LABS: TSH reflex Free T4 1.03 uIU/mL (0.32-4.0); Vitamin D 25-OH Total 10.5 ng/mL (>30)
[2025-01-29 05:32] LABS: HIV AB/AG Nonreactive (Nonreactive); HIV Num 1 0.06 S/CO (0.00-0.99); ~HepC Num1 0.11 S/CO (0.00-0.79); ~Hepatitis C Antibody Nonreactive (Nonreactive)
[2025-01-30 06:38] LABS: Cyclic Citrullinated Peptide <16 UNITS
[2025-01-30 11:44] LABS: Anti Nuclear Antibody Screen NEGATIVE (NEGATIVE)
== END 2025-01-28 11:56 | disposition home or self-care (01) ==
LOC: HO.HHCL 11:55
PROVIDERS: Visit Provider Internal Medicine
DX: M25.50 Pain in unspecified joint (principal)
CPT/HCPCS: 36415; 80053; 80061; 82306; 83036; 84443; 85025; 85652; 86038; 86140; 86200; 86803; 87389

== ENCOUNTER 2025-05-03 09:07 | Outpatient (REF) | payer OTHER, MEDICAID, SELFPAY ==
--- NOTE | ~2025-05-03 | US_ITS ---
CLINICAL HISTORY: N20.0 - Calculus of kidney US renal Comparison: None Findings: Right kidney 11.0 cm length. No significant focal abnormality. Left kidney 10.8 cm length. 3 mm nonobstructing lower pole stone. Question calcified cyst in lower pole. No bilateral hydronephrosis. Normal bilateral renal echogenicity. Impression: 3 mm nonobstructing left lower pole stone This document has been electronically signed by: Otis Esteves MD on 05/04/2025 19:58:41
--- OUTSIDE RECORDS SUMMARY | 2025-05-03 09:26 | XMS_ITS | Encounter Summary ---
Author Organization [facility] Address [address] [place] [address] Care Team Providers Care Rounder And Backer Name Role Phone Javier Taylor MD Primary Care Provider Un available Encounter Details Date Type Department Care Team Description 03/28/2018 Release of Information Medical Records [address] [place] [id number] Abstract, Provider Social History Tobacco Use Types Packs/Day Years Used Date Smoking Tobacco: Never Smokeless Tobacco: Never Alcohol Use Standard Drinks/Week Comments Yes 0 (1 standard drink = 0.6 oz pur e alcohol) occ Sex Assigned at Date Recorded Not on file documented as of this encounter Plan of Treatment Not on file documented as of this encounter Visit Diagnoses Not on filedocumented in this encounter Care Teams Rounder And Backer Relationship Specialty Start Date End Date Javier Taylor MD PCP - General Internal Medicine 03/10/18 documented as of this encounter
== END 2025-05-03 09:08 | disposition home or self-care (01) ==
LOC: HO.US 09:07
PROVIDERS: PCP Internal Medicine; Visit Provider Nurse Practitioner Family
DX: N20.0 Calculus of kidney (principal)
CPT/HCPCS: 76775

== ENCOUNTER → 2025-05-03 09:10 | Outpatient (BNV) | payer OTHER, MEDICAID, SELFPAY | PROVIDERS: PCP Internal Medicine; Visit Provider Radiology Diagnostic Radiology | DX: N20.0 Calculus of kidney (principal) | CPT/HCPCS: 76775 ==

== ENCOUNTER 2025-05-23 14:20 | Outpatient (AMB) | payer OTHER, SELFPAY ==
--- NOTE | 2025-05-23 14:37 | A.OFFVIS_ITS ---
Intake Visit Reasons: 1y/US/ discuss Vasectomy(set) Intake Note: Patient presents today for follow up on: Recurrent Prostatitis, Nephrolithiasis, Ultrasound Results, and Vasectomy Consult Imaging Completed: 05/03/25 Urology Medications: None Allergies to Antibiotic: No Known Allergies Blood Thinner: None Secondary Set Up Man Required: Yes Secondary Set Up Man Services: Secondary Set Up Man Present Secondary Set Up Man Name: [id number] Accompanied by: Self / Same As Patient Allergies No Known Allergies Allergy (Verified 05/23/25 16:10) Medication List - Last Reconciled 05/23/25 by LEIGHTON Austin albuterol sulfate 90 mcg/actuation 2 puffs inhalation Q4-6H PRN budesonide-formoterol 160-4.5 mcg/actuation 2 puffs PO BID hydrochlorothiazide 25 mg PO DAILY hydroxyzine HCl 25 mg PO BID mirtazapine 15 - 45 mg PO BEDTIME PRN pantoprazole 40 mg PO DAILY HPI Comments Details: Collin is a very pleasant 44-year-old Lao-speaking male patient of Dr. Neptali Martinez. He has a past medical history of asthma, H pylori, and palpitations. He presents to the office today for follow-up of his nephrolithiasis and is enquiring vasectomy evaluation. In discussion with the patient today reports to be doing and feeling well. He reports no bothersome urinary issues or concerns since his last office visit here. He does have a previous history of prostatitis and has not had any flare-ups since his last office visit here approximately 1 year ago. Recent renal imaging results reviewed with the patient today. 05/01 no bilateral hydronephrosis. Normal bilateral renal echogenicity. Nonobstructing 3 mm left lower pole stone. When asked he reports to be drinking plenty of water daily. He denies any bothersome urinary issues or concerns. He denies denies urinary urgency, urinary frequency, incontinence, nocturia, hematuria, foul smelling urine, changes to urinary stream, flank pain, fever, and or chills. He is happy with his current voiding parameters. In office urinalysis results reviewed with the patient today. He otherwise offers no other issues or concerns at this time. Vasectomy evaluation The patient presents for vasectomy consultation.? He is currently He has fathered 2 children with a single partner and [address] is due 07/16/25 The youngest child is currently His partner is aware and permissive for a vasectomy Current form of control is is however previously had IUD Current employment is works in [employer] The vasectomy may be complicated due to a history of no complicating issues. Patient education has been provided via AUA video, via printed information, risks of failure, recovery time, bruising and potential pain syndrome have been stressed Discussion today focused on the presence of vasectomy and the risks, benefits and alternatives that are available. Vasectomy as intended as a permanent form of control. Printed information and literature was provided to the patient. Overall there is a one in 2500 failure rate. This can occur at any time after vasectomy. Risks were discussed highlighting hematoma, spermatocele, epididymal congestion, development of sperm antibodies, and development of chronic pain estimated between 1-5%. The procedure was reviewed in detail. Anatomical diagrams of the male genitalia were used to explain the location of the vas deferens. The vas deferens will be transected, the proximal end will be cauterized, a metal clip would be applied to separate the 2 vas deferens ends. It was explained the procedure will be done in the office and takes approximately 10-15 minutes. Less common problems that arise with vasectomy include hematoma, bleeding, allergic reaction to anesthetic, epididymal infection, epididymal congestion, scrotal discomfort, spermatic leak, spermatic granuloma and the possibility of antisperm antibodies. He understands these risks and wishes to proceed. Consent was signed at the office today. He also understands that it takes 12 weeks for sperm to fully clear the system. He will need to provide a semen sample at 12 weeks and if this is not clear a 2nd sample at 16 weeks. Medical clearance to stop using protection will only be provided if he satisfies published criteria for sperm clearance. [facility] Medical History Asthma History of sleep study Helicobacter pylori (H. pylori) Chest pain Palpitations Surgical History Left inguinal hernia (01/27/24) History of esophagogastroduodenoscopy (EGD) Hx of colonoscopy Family History Father Hypertension Cardiovascular disease Social History Do you presently have visiting nurse or other home services: No Alcohol intake: former Comment: counts correct Patient Tobacco Use Status: Never used Tobacco Review of Systems Const Reports no additional complaints Eyes Reports no additional complaints ENT Reports no additional complaints Card Reports as per HPI Resp Reports as per HPI GI Reports as per HPI Reports as per HPI Musc Reports no additional complaints Neuro Reports no additional complaints Psych Reports no additional complaints Endo Reports no additional complaints Mo/Lymph Reports no additional complaints Aller/Immun Reports no additional complaints Physical Exam Const General: cooperative, healthy appearing, comfortable, no acute distress, well developed, alert and awake Nutritional Appearance: average body habitus Orientation/consciousness: patient oriented x3 Limitations: language barrier HEENT Head: Yes normal to inspection, Yes normocephalic and Yes atraumatic Ears: hearing grossly normal bilaterally Eyes General: appearance normal, both eyes and all related structures Neck Neck: Yes normal visual inspection and Yes trachea midline Chest Chest palpation & inspection: normal inspection of the chest Resp Effort & Inspection: normal respiratory effort and able to speak in complete sentences Cardio Rate: regular rate GI Inspection: Yes normal to inspection General: Yes no CVA tenderness Back/Spine/Pelvis Back: no CVA tenderness Skin General skin exam: no rashes or lesions noted Neuro General: patient oriented x3 Extrem General: Yes normal to inspection Psych Appearance: grossly normal and well kempt Mental Status: mental status grossly normal Speech and movement: Normal speech and movement present and Clear speech present Affect: normal affect Attitude: cooperative Thought process: Normal thought process present Thought content: Normal thought content present Insight: Fair insight present (Psych) Judgement: Fair judgement present (Psych) Results AMB Urinalysis, Automated UA Leukoctes 0 Jimi/uL Last Edit by EZRA Riley on 05/23/25 15:09 UA Nitrite Last Edit by EZRA Riley on 05/23/25 15:09 UA Urobilinogen 0.2 mg/dL Last Edit by [facility] Castillo[facility] on 05/23/25 15:0 9 UA Protein 15 mg/dL Last Edit by Valeriy Castillo, [facility] on 05/23/25 15:09 UA pH 8.5 Last Edit by Valeriy Castillo, [facility] on 05/23/25 15:09 UA Blood 0 Nehemias/uL Last Edit by Valeriy Castillo, [facility] on 05/23/25 15:09 UA Specific [place] 1.005 Last Edit by Valeriy Castillo, [facility] on 05/23/25 15: 09 UA Ketone Last Edit by Valeriy Castillo, [facility] on 05/23/25 15:09 UA Bilirubin 0 mg/dL Last Edit by Valeriy Castillo, [facility] on 05/23/25 15:09 UA Glucose 0 mg/dL Last Edit by [facility]iy Castillo, [facility] on 05/23/25 15:09 Results Reviewed Results Reviewed: Laboratory Last Values Urine pH (Auto) 8.5 05/23/25 15:07 Specific [place] (Auto) 1.005 05/23/25 15:07 Urine Protein (Auto) 15 mg/dL 05/23/25 15:07 Glucose (UA)(Auto) 0 mg/dL 05/23/25 15:07 Urine Blood (Auto) 0 Nehemias/uL 05/23/25 15:07 Urine Bilirubin (Auto) 0 mg/dL 05/23/25 15:07 Urine Urobilinogen (Auto) 0.2 mg/dL 05/23/25 15:07 Leukocyte Esterase (Auto) 0 Jimi/uL 05/23/25 15:07 Date of Service: 05/03/25 Procedure(s): US renal BI Findings: Right kidney 11.0 cm length. No significant focal abnormality. Left kidney 10.8 cm length. 3 mm nonobstructing lower pole stone. Question calcified cyst in lower pole. No bilateral hydronephrosis. Normal bilateral renal echogenicity. Impression: 3 mm nonobstructing left lower pole stone Assessment & Plan Assessment & Plan (1) Nephrolithiasis: Code(s): N20.0 - Calculus of kidney Category: Medical (2) Vasectomy evaluation: Code(s): Z30.09 - Encounter for other general counseling and advice on contraception Category: Medical (3) Anxiety about health: Code(s): R45.89 - Other symptoms and signs involving emotional state Category: Medical Plan In office urinalysis results reviewed with the patient today; as noted above. Recent renal imaging results reviewed with the patient today; as noted above. Will continue with surveillance monitoring of nephrolithiasis. We did discussed the importance of continuing to drink plenty of water daily. We discussed adding 1 oz of lemon juice to water daily. We discussed vasectomy at length risks and benefits. Consent was obtained. All questions were answered. Medications provided; we discussed the importance of bringing medication to office day of procedure. We discussed semen analysis in office verses fellows kit. Follow-up with nurse practitioner in 1 year with imaging to be completed prior; or sooner with any issues, concerns, and or questions. Follow-up vasectomy status post arrival of 3rd trialed. Orders: Orders 2 AMB Urinalysis Automated Today Z13.9 - Encounter for screening, unspecified US renal BI 1 Year N20.0 - Calculus of kidney Medications: New tramadol 50 mg PO Q8H PRN 7 tabs 0RF pain N43.3 - Hydrocele, unspecified diazepam (Valium) Please bring medication to office day of procedure 2 mg PO DAILY 1 tab 0RF anxiety 1 day R45.89 - Other symptoms and signs involving emotional state Patient Instructions: The patient had an opportunity to ask questions regarding the treatment plan. All questions were answered. Physical exam, labs, and imaging were discussed and reviewed in detail. As well as risks, benefits, and discussion of treatment choices. No major barriers to understanding were identified. The patient expressed understanding and agreement with the above treatment plan. The patient was made aware they should contact our office by phone for worsening of their current condition, the appearance of new symptoms, or with any questions or concerns. Compliance is encouraged with any medications and follow up testing that is ordered. It is a privilege to be allowed the opportunity to participate in? your urological care.? Again, if you have any questions or concerns If you have any questions or concerns please do not hesitate to contact me. The office is [phone]. This note is constructed using voice recognition software. While every effort has been made to ensure accuracy research microbiologist errors may have been included. Yours sincerely, DOMI AustinP-BC Coding Level of Care Code Est Pt Level 4 (10736) Diagnoses Nephrolithiasis N20.0 Vasectomy evaluation Z30.09 Anxiety about health R45.89
--- OUTSIDE RECORDS SUMMARY | 2025-05-23 15:10 | XMS_ITS | Clinical Summary ---
Author Organization [facility] Address [address] [place] [address] Care Team Providers Care Recreation Therapy Aide Name Role Phone Mateusz Felix PA-C Primary Care Provider [phone] Source Comments PLEASE NOTE, if this patient is a minor, it may be UNLAWFUL to discuss sensitive information that is contained in these records (such as FAMILY PLANNING, MENTAL HEALTH or SUBSTANCE ABUSE) with the minor patient's parent or other person without the patient's specific authorization.[facility] Allergies No known active allergies Medications hydrOXYzine HCl (ATARAX) 50 mg tabletIndication s:Anxiety Take 1 Tab by mouth 3 (three) times daily as needed for other reason (NAUSEA) 60 Tab 05/28/2019 Active raNITIdine HCl (ZANTAC) 150 mg capsuleIndicatio ns:Gastroesophag eal reflux disease without esophagitis Take 1 Cap by mouth 2 (two) times daily 60 Cap 2 05/28/2019 Active polyethylene glycol 3350 17 gram packetIndication s:Difficulty passing stool Take 17 g by mouth once daily 28 Each 1 09/20/2019 Active Active Problems Problem Noted Date Diagnosed Date Pre-diabetes 03/28/2019 Family History Medical History Relation Name Comments Heart Problems Father High Cholesterol Father Hypertension Father Diabetes Mother Hypertension Mother Thyroid Disease Sister Relation Name Status Comments Brother Alive 3 Father Alive Mother Alive Sister Alive 1 Social History Tobacco Use Types Packs/Day Years Used Date Smoking Tobacco: Never Smokeless Tobacco: Never Alcohol Use Standard Drinks/Week Comments No 0 (1 standard drink = 0.6 oz pur e alcohol) Social Connections Answer Date Recorded Social Connections and Isolation 0 07/02/2019 Financial Resource Strain Answer Date R ecorded Financial Resource Strain 0 2018 Stress Answer Date Recorded Stress 0 07/02/2019 Physical Activity Answer Date Recorded Physical Activity 0 07/02/2019 Food Insecurity Answer Date Recorded Food 0 07/02/2019 Transportation Needs Answer Date Record ed Transportation 0 07/02/2019 Housing Stability Answer Date Recorded Housing 0 07/02/2019 Safety and Environment Answer Date Clark rded Safety 0 07/02/2019 Utilities Answer Date Recorded Utilities 0 07/02/2019 Employment Answer Date Recorded Employment 0 07/02/2019 Sex and Gender Information Value Date Recorded Sex Assigned at Male 03/09/2019 11:46 AM PDT Legal Sex Male 1:20 PM PST Gender Identity Male 03/09/2019 11:46 AM PDT Sexual Orientation Straight 03/09/2019 11 :46 AM PDT 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 Not on file Not on file Last Filed Vital Signs Vital Sign Reading Time Taken Comments Blood Pressure 119/77 05/13/2020 3:15 PM EDT Pulse 74 05/13/2020 3:15 PM EDT Temperature 37.1 C (98.7 F) 05/13/2020 3:15 PM EDT Respiratory Rate 18 05/13/2020 3:15 PM EDT Oxygen Saturation 99% 05/13/2020 3:15 PM EDT Inhaled Oxygen Concentration - - Weight 65 kg (143 lb 6.4 oz) 09/20/2019 9:07 AM EST Height 185.4 cm (6' 1 ) 09/20/2019 9:07 AM EST Body Mass Index 18.92 09/20/2019 9:07 AM EST Plan of Treatment Not on file Insurance [employer] Member Subscriber Plan / Payer (Ef fective 2019-Present) Name:Juan Carlos Cedeñodo Relation to Subscriber:Self Name:Davidson Collin Payer ID:[id number] Type:Indemnity Address: [facility] [address] [place] [address] Care Teams Recreation Therapy Aide Relationship Specialty Start Date End Date Mateusz Felix PA-C [address] [place] [address] PCP - General FAMILY MEDICINE, [place] 05/15/20
--- OUTSIDE RECORDS SUMMARY | 2025-05-23 15:10 | XMS_ITS | Encounter Summary ---
Author Organization [facility] [employer] Address [address] [place] [address] Care Team Providers Care Bottle And Glass Inspector Name Role Phone Rhonda Lewis MD Primary Care Provide r Reason for Visit * Reason Onset Date Comments Nurse Triage 07/06/2024 Encounter Details Date Type Department Care Team (Late st Contact Info) Description 07/06/2024 Telephone [facility] [address], [place] [phone] Rhonda Lewis MD [address] [place], [place] [phone] Nurse Triage Social History Tobacco Use Types Packs/Day Years Used Date Smoking Tobacco: Never Smokeless Tobacco: Never Alcohol Use Standard Drinks/Week Comments Never 0 (1 standard drink = 0.6 oz pur e alcohol) Depression Answer Date Recorded Patient Health Questionnaire-9 Score 0 03/17/2023 Housing Stability Answer Date Recorded What is your housing situation today? I have alexkevin nicole 08/29/[address] you li ve. Do you have problems with any of the following? None of the above 08/29/2023 Food Insecurity Answer Date Recorded Within the past 12 months, y ou worried that your food would run out before you got money to buy more: Never True 08/29/2023 Within the past 12 months,th e food you bought just didn't last and you didn't have enough money to get more: Never True Transportation Answer Date Recorded In the past 12 months, has l ack of transportation kept you from medical appts, meetings, work or from getting things needed for daily living? No 08/29/2023 Utilities Answer Date Recorded In the past 12 months, has t he electric, gas, oil or water company threatened to shut off services in your home? No 08/29/2023 Depression Answer Date Recorded Patient Health Questionnaire-2 Score 0 03/17/2023 Sex and Gender Information Value Date Recorded Sex Assigned at Male 09/06/2022 10:37 AM EDT Legal Sex Male 10:37 AM EDT Gender Identity Male 09/06/2022 10:37 AM EDT Sexual Orientation Choose not to disclose 2021 10:37 AM EDT documented as of this encounter Miscellaneous Notes * Telephone Encounter - Ivelisse Abdul RN - 07/06/2024 10:07 AM EDT Called pt. Via [employer] per diem interpreter [id number] Tomasa. Pt. States that he has been having high blood pressure, chest pain and Anxiety. Last BP was 145/ 94. Pt. Denies any left arm pain or jaw pain. Pt. Does have SOB when he wakes up or when he walks around. Pt. States that he has had testing on his heartx 3 days ago and he went to [facility] ED for heart racing and all testing came back Negative for heart problems according to pt. He does not have services for his Anxiety with counselor. He used to be on anti- anxiety medication but it has . Advised pt. To go to ED or come to walk in as he is requesting appt. With PCP and PCP has no appts available in the next few weeks. Pt states he also see's Dr. Del Rio when he does not see Dr. Gunderson. Pt requesting first available appt. With one of those providers. Pt is calm at present and denies any current chest pain. Pt does not have any suicidal thoughts or thoughts of self harm. Pt would like to establish counseling services with [facility]. Appt. Made for 07/18/[address] Del Rio and I would like N present. I will also send this note to [facility] to reach out to pt. Today. Pt. Will come to walk in at [facility] or go to ED in meantime prior to scheduled appt. As needed. I will also send request to Clinical care coordinators to get [facility] ED visit from 07/03/24 into pt. Chart. Protocol Used: Anxiety and Panic Attack (Adult) Protocol-Based Disposition: See in Office or Video Visit within 2 Weeks- appt. Scheduled with Dr. Del Rio on 07/18/24 at 11am. Video visit not offered Positive Triage Question: * Symptoms of anxiety or panic attack and is a chronic symptom (recurrent or ongoing AND present > 4 weeks) * All higher-acuity triage questions were negative Care Advice Discussed: * Note to Triager - Anxiety Symptoms * Reassurance and Education - Anxiety * Anxiety - Healthy Lifestyle Tips * Avoid Caffeine * Avoid Triggers of Anxiety * Telephone Encounter - Toni Orourke - 07/06/2024 9:59 AM EDT Symptoms: High Blood Pressure - Caller Reports, Anxiety or Panic Attack Outcome: Transfer to a nurse or provider NOW! Reason: Trouble breathing The caller accepted this outcome Please call [phone] documented in this encounter Plan of Treatment Not on file documented as of this encounter Visit Diagnoses Not on filedocumented in this encounter Additional Health Concerns Assessment Noted Time PHQ-9 Depression Total Score: 0 03/17/20 23 2:57 PM EDT documented as of this encounter Care Teams Bottle And Glass Inspector Relationship Specialty Start Date End Date Rhonda Lewis MD [address] [place] [address] PCP - General Family Medicine 06/02/20 documented as of this encounter
--- OUTSIDE RECORDS SUMMARY | 2025-05-23 15:10 | XMS_ITS | Clinical Summary ---
Author Organization [facility] Address [address] [place] [address] Care Team Providers Care Electronic Console Display Operator Name Role Phone Javier Taylor MD Primary Care Provider Social History Tobacco Use Types Packs/Day Years Used Date Smoking Tobacco: Never Assessed Sex and Gender Information Value Date Recorded Sex Assigned at Not on file Legal Sex Male 4:47 PM EST Gender Identity Not on file Sexual Orientation Not on file Plan of Treatment Health Maintenance Due Date Last Done Comments DTaP,Tdap,and Td Vaccines (1 - Tdap) 1999 Hepatitis B Vaccines (1 of 3 - 19+ 3-dose series) 1999 COVID-19 Vaccine (2023-2 5 season) 2024 Influenza Vaccine (#1) 2025 HIB Vaccines Aged Out No longer eligi ble based on patient's age to complete this topic HPV Vaccines Aged Out No longer eligi ble based on patient's age to complete this topic Hepatitis A Vaccines Aged Out No long er eligible based on patient's age to complete this topic IPV Vaccines Aged Out No longer eligi ble based on patient's age to complete this topic MMR Vaccines Aged Out No longer eligi ble based on patient's age to complete this topic Meningococcal ACWY Vaccine Aged Out N o longer eligible based on patient's age to complete this topic Meningococcal B Vaccine Aged Out No l onger eligible based on patient's age to complete this topic Pneumococcal Vaccine: Pediat rics (0 to 5 Years) and At-Risk Patients (6 to 49 Years) Aged Out No longer eligible b ased on patient's age to complete this topic RSV Immunization Patients Un andreina 20 months Aged Out No longer eligible b ased on patient's age to complete this topic Varicella Vaccines Aged Out No longer eligible based on patient's age to complete this topic Care Teams Electronic Console Display Operator Relationship Specialty Start Date End Date Javier Taylor MD [address] [place] [id number] PCP - General Internal Medicine 03/10/18
== END 2025-05-23 15:35 | disposition home or self-care (01) ==
PROVIDERS: PCP Internal Medicine; Visit Provider Nurse Practitioner Family
DX: N20.0 Calculus of kidney (principal); Z30.09 Encounter for other general counseling and advice on contraception; R45.89 Other symptoms and signs involving emotional state; Z13.9 Encounter for screening, unspecified
CPT/HCPCS: 99214

== ENCOUNTER → 2025-05-23 14:20 | Outpatient (BNVA) | payer OTHER, MEDICAID, SELFPAY | PROVIDERS: PCP Internal Medicine; Visit Provider Nurse Practitioner Family | DX: Z30.09 Encounter for other general counseling and advice on contraception (principal); R45.89 Other symptoms and signs involving emotional state; N20.0 Calculus of kidney | CPT/HCPCS: 81003 ==

== ENCOUNTER 2025-09-06 08:47 | Outpatient (AMB) | payer OTHER, MEDICAID, SELFPAY ==
[2025-09-06 09:05] VITALS: BP 118/82; PULSE 79; BMI 21.7
--- NOTE | 2025-09-06 09:05 | MHC.OFFVIS ---
Vital Signs 09/06/25 09:05 Height 6 ft Weight 160 lb 0.889 oz BMI 21.7 BP 118/82 Blood Pressure Location Rt brachial Position Sitting Pulse 79 Pulse Source Pulse Oximeter Intake Visit Reasons: Er- [facility] Follow up-Chest Pain Mold Hoister Required: Yes Mold Hoister Language: Knife Setter Grinder Machine Name: florence [id number] Francine Allergies No Known Allergies Allergy (Verified 09/06/25 09:09) Medication List - Last Reconciled 09/06/25 by KILO Suarez hydrochlorothiazide 25 mg PO QAM hydroxyzine HCl 25 mg PO BID pantoprazole 40 mg PO DAILY HPI HPI Er- [facility] Follow up-Chest Pain: Details: Collin is a 44-year-old male with past medical history of interstitial lung disease, sleep apnea, GERD, prior evaluation for chest discomfort and palpitations without cardiac findings (2020)who was seen in the [facility] 06/26/2024 room for chest pain, shortness of breath and dizziness. He ruled out for ACS. He was referred back to Cardiology in follow-up. He then underwent an exercise stress test and Holter monitor showing no significant abnormalities. His last prior visit was 10/18/2024. He was recently seen at [facility] for chest discomfort that was relieved with GI cocktail. Today he reports that his chest pressure has improved. He is on omeprazole. He was noticing symptoms at rest and during the night. He has no chest discomfort brought on by physical activity. He is noticing heart palpitations, rapid tachycardia causing him concern. It can happen when he is at rest and laying down. No lightheadedness, presyncope, syncope. No shortness of breath or activity intolerance. He is currently working in the [employer] at [employer]. No routine exercise. [facility] Medical History Asthma History of sleep study Helicobacter pylori (H. pylori) Chest pain Palpitations Surgical History Left inguinal hernia (01/27/24) History of esophagogastroduodenoscopy (EGD) Hx of colonoscopy Family History Father Hypertension Cardiovascular disease Social History Do you presently have visiting nurse or other home services: No Alcohol intake: former Comment: counts correct Patient Tobacco Use Status: Never used Tobacco Review of Systems Const All systems reviewed & are unremarkable except as noted in HPI and below ENT Denies dizziness Card Denies chest pain, Denies chest pain at rest, Denies chest pain with activity, Reports rapid heart rate, Denies pedal edema, Denies edema, Denies leg edema, Denies lightheadedness, Denies palpitations, Denies dyspnea, Denies dyspnea on exertion and Denies orthopnea Resp Denies cough, Denies dyspnea and Denies dyspnea on exertion GI Denies hematochezia and Denies change in stool character Musc Denies abnormal gait, Denies limited range of motion, Denies muscle cramps, Denies muscle weakness, Denies numbness, Denies radiating pain into limb, Denies stiffness and Denies tingling Neuro Denies abnormal gait, Denies dizziness, Denies numbness and Denies tingling Endo Denies palpitations Physical Exam Vital Signs: Last Vital Signs Pulse 79 09/06/25 09:05 BP 118/82 09/06/25 09:05 BMI result Body Mass Index 21.7 Const General: cooperative, healthy appearing, comfortable and no acute distress Orientation/consciousness: patient oriented x3 Neck Neck: Yes normal visual inspection and Yes no JVD Resp Effort & Inspection: normal respiratory effort Auscultation: clear to auscultation bilaterally, no crackles, no rales, no rhonchi and no wheezes Cardio Jugular venous distension: no JVD Rate: regular rate Rhythm: regular rhythm Heart sounds: S1 normal heart sound present, S2 normal heart sound present, no murmurs and no rubs Neuro General: patient oriented x3 Extrem General: Yes normal to inspection, No no pedal edema and No calf tenderness Psych Appearance: grossly normal Mental Status: mental status grossly normal Speech and movement: Normal speech and movement present Assessment & Plan Assessment & Plan (1) Palpitations: Code(s): R00.2 - Palpitations Category: Medical Plan: Reports of rapid heart palpitations. Holter monitor 09/19/2020 showing sinus bradycardia with average heart rate 56, 60% of the time less than 60. Echocardiogram was done 09/19/2020 which was a normal study. Holter monitor 07/13/2024 sinus rhythm with average heart rate 64. With increasing heart palpitations causing him concern. Will check a cardiac event monitor. Instructed on reduction in caffeinated beverages. (2) Chest pain: Code(s): R07.9 - Chest pain, unspecified Category: Medical Qualifiers: Chest pain type: unspecified Qualified Code(s): R07.9 - Chest pain, unspecified Plan: Reports of intermittent chest discomfort, Atypical for angina. Exercise stress test done 08/02/2024 with exercise 10 minutes, no anginal symptoms and no EKG changes of ischemia. Recent [facility] ED evaluation for chest discomfort and ruled out for ACS. He was treated with GI cocktail with improvement in his symptom. Currently with no anginal sounding symptoms. Offered reassurance. Signs and symptoms of angina reviewed with him. (3) Hospital discharge follow-up: Code(s): Z09 - Encounter for follow-up examination after completed treatment for conditions other than malignant neoplasm Category: Medical Plan: [facility] records reviewed Plan Time spent on chart review, documentation, interview and assessment Coding Level of Care Code Est Pt Level 4 (27473) Complex EM visit Add On G2211 Diagnoses Palpitations R00.2 Chest pain, unspecified type R07.9 Chest pain type: unspecified Hospital discharge follow-up Z09 Time Spent (min) 28
--- OUTSIDE RECORDS SUMMARY | 2025-09-06 09:10 | XMS_ITS | Encounter Summary ---
Author Organization [employer] Address [address] [place] [address] Care Team Providers Care Business Analysis Consultant Name Role Phone Rhonda Lewis MD Primary Care Provide r Reason for Visit * Reason Onset Date Comments Nurse Triage 07/06/2024 Encounter Details Date Type Department Care Team (Late st Contact Info) Description 07/06/2024 Telephone [facility] [address] [place], [place] [phone] Rhonda Lewis MD [address] [place], [place] [phone] Nurse Triage Social History Tobacco Use Types [...] 07/06/2024 10:07 AM EDT Called pt. Via [employer] [facility] urgent care [id number] [place]. Pt. States that he has been having high blood pressure, chest pain and Anxiety. Last BP was 145/ 94. Pt. Denies any left arm pain or jaw pain. Pt. Does have SOB when he wakes up or when he walks around. Pt. States that he has had testing on his heartx 3 days ago and he went to [facility] ED for heart racing and all testing [...] would like to establish counseling services with [facility]. Appt. Made for 07/18/[address] Del Rio and I would like N present. I will also send this note to [facility] to reach out to pt. Today. Pt. Will come to walk in at [facility] or go to ED in meantime prior to scheduled appt. As needed. I will also send request to Clinical care coordinators to get [facility] ED visit from 07/03/24 into pt. Chart. [...] The caller accepted this outcome Please call [phone] documented in this encounter Plan of Treatment Upcoming Encounters Date Type Department Care Team (Late st Contact Info) Description 09/26/2025 10:00 AM EST Office Visit [facility] [address] [place] [address] Rhonda Lewis MD [address] [place] [address] documented as of this encounter Visit Diagnoses Not on filedocumented in this encounter Additional Health Concerns Assessment Noted Time PHQ-9 Depression Total Score: 0 03/17/20 23 2:57 PM EDT documented as of this encounter Care Teams Business Analysis Consultant Relationship Specialty Start Date End Date Rhonda Lewis MD [address] [place], [place] [phone] PCP - General Family Medicine 06/02/20 documented as of this encounter
--- OUTSIDE RECORDS SUMMARY | 2025-09-06 09:10 | XMS_ITS | Clinical Summary ---
Author Organization [employer] Address [address] [place] [address] Care Team Providers Care Layer Out Plate Glass Name Role Phone Rhonda Lewis MD Primary Care Provide r Allergies Active Allergy Reactions Criticality Noted Date Comments Iodinated Contrast Media Rash Low 03/10/2021 Medications * This document contains information received from the source organization and may not represent a complete record from that organization. loratadine (Claritin) 10 MG tablet take 1 tablet by oral route every day as needed for allergies 90 tablet 3 Active Blood Pressure Monitoring (Blood Pressure Cuff) miscIndications:E ssential hypertension 1 each Once daily. 1 each 4 Active hydrOXYzine HCl (Atarax) 12.5 mg split tablet Take 25 mg by mouth at bedtime. 4 Active budesonide-formot eugenia (Symbicort) 160-4.5 MCG/ACT inhaler 2 times a day 1 Active Diclofenac Sodium 1 % gel APPLY 1 INCH TOPICALLY IN THE MORNING AND AT BEDTIME IF NEEDED FOR PAIN 100 g 4 Active albuterol (Ventolin HFA) 108 (90 Base) MCG/ACT inhaler Inhale 2 puffs every 4 (four) hours if needed for wheezing. 18 g 2 4 Active mirtazapine (Remeron) 30 MG tabletIndications :Anxiety Take 1 tablet (30 mg) by mouth at bedtime. 90 tablet 1 5 Active ergocalciferol (Vitamin D2) 1.25 MG (33460 UT) capsuleIndication s:Vitamin D deficiency TAKE 1 CAPSULE BY MOUTH ONE TIME PER WEEK 12 capsule 5 Active hydroCHLOROthiazi de (HYDRODiuril) 25 MG tabletIndications :Essential hypertension TAKE 1 TABLET BY MOUTH EVERY DAY IN THE MORNING 90 tablet 1 5 Active omeprazole (PriLOSEC) [address] capsuleIndication s:Gastroesophagea l reflux disease, unspecified whether esophagitis present Take 1 capsule (40 mg) by mouth before breakfast and before evening meal. Do not crush or chew. 60 capsule 11 5 08/29/20 26 Active SUMAtriptan (Imitrex) 25 MG tabletIndications :Migraine without aura and without status migrainosus, not intractable Take 1 tablet (25 mg) by mouth 1 (one) time if needed for migraine for up to 9 doses. May repeat dose once in 2 hours if no relief. Do not exceed 2 doses in 24 hours. 9 tablet 5 Active Active Problems Problem Noted Date Diagnosed Date Vasectomy evaluation 03/26/2025 Assessment & Plan (03/26/2025 12:16 PM EDT): Referral to urology done Vitamin D deficiency 03/26/2025 Assessment & Plan (03/26/2025 12:16 PM EDT): I advise to c/w vitamin D weekly supplementation and when he finish it to switch to daily supplementation 1000U daily Myalgia, multiple sites 03/26/2025 Assessment & Plan (03/26/2025 12:17 PM EDT): I advise proper hydration, healthy diet and exercise Polyarthralgia 01/28/2025 Assessment & Plan (01/28/2025 4:51 PM EDT): Blood work ordered today patient will be contacted with results Palpitations 07/18/2024 Assessment & Plan (09/28/2024 11:17 AM EST): Resolved, probably related to anxiety. Continue on Mirtazapine QHS. Assessment & Plan (07/18/2024 2:57 PM EDT): - most likely related to anxiety (see below) - f/u with cardiology after stress test, then w/PCP Other chest pain 06/27/2024 Assessment & Plan (06/27/2024 4:51 PM EDT): He has costochondritis, unclear if he has arrhythmia, will order Holter monitor. Rx diclofenac gel + tylenol FU with PCP in 6-8w Left inguinal pain 12/12/2023 Elevated PSA 12/12/2023 Assessment & Plan (12/12/2023 5:35 PM EST): Follow with urology Lower urinary tract symptoms (LUTS) 11/14/2023 Assessment & Plan (11/14/2023 12:44 PM EST): It seems to be related to prostatitis. Other microscopic hematuria 11/14/2023 Assessment & Plan (11/14/2023 12:44 PM EST): ?Prostatitis Rx w bactrim as below, fu with PCP , repeat UA /PSA Acute prostatitis 11/14/2023 Assessment & Plan (12/12/2023 5:35 PM EST): Follow with urology Assessment & Plan (11/14/2023 12:44 PM EST): Tender MARINA/prostate. 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 Today's sxs seem to be related to anxiety exacerbation, we'll do w/u to ro other cause and he will fu with his PCP in case he needs adjustment of meds. Chronic low back pain 03/17/2023 COVID-19 03/17/2023 Essential hypertension 03/17/2023 Assessment & Plan (01/28/2025 4:50 PM EDT): I advised - Aerobic exercise to reduce BP. Initial goal of 30 min walk 3-5x/week. Increase as tolerated. - low-sodium diet (goal: <2g/day) and heart healthy diet such as DASH to reduce BP and prevent ASCVD. - Home BP monitoring 1-2 x day with goal of <140/90. - Seek immediate medical attention for chest pain, palpitations, SOB, syncope, or sudden changes in mental status. - Do not change or discontinue current prescriptions without first consulting health care provider Assessment & Plan (12/12/2023 5:35 PM EST): - Aerobic exercise to reduce BP. Initial goal of 30 min walk 3-5x/week. Increase as tolerated. - low-sodium diet (goal: <2g/day) and heart healthy diet such as DASH to reduce BP and prevent ASCVD. - Home BP monitoring 1-2 x day with goal of <140/90. - Seek immediate medical attention for chest pain, palpitations, SOB, syncope, or sudden changes in mental status. - Do not change or discontinue current prescriptions without first consulting health care provider Assessment & Plan (04/12/2023 4:30 PM EDT): Now at goal continue with current interventions Assessment & Plan (03/18/2023 4:47 PM EDT): - Aerobic exercise to reduce BP. Initial goal of 30 min walk 3-5x/week. Increase as tolerated. - low-sodium diet (goal: <2g/day) and heart healthy diet such as DASH to reduce BP and prevent ASCVD. - Home BP monitoring 1-2 x day with goal of <140/90. - Seek immediate medical attention for chest pain, palpitations, SOB, syncope, or sudden changes in mental status. I increase today his hydrochlorothiazide to 25mg daily - Do not change or discontinue current prescriptions without first consulting health care provider Infectious diarrheal disease 03/17/2023 Moderate persistent asthma 03/17/2023 Assessment & Plan (09/28/2024 11:15 AM EST): Well controlled, continue albuterol prn only and will start Symbicort if he starts recurrent asthma exacerbations. He is getting influenza and PCV-20 today. Multiple joint pain 03/17/2023 Assessment & Plan (09/28/2024 11:16 AM EST): Unclear if related to B12, he will continue on B12 supplements and Tylenol QHS x 1 month and then prn. Arthritis inflammatory workup from 2021 was negative, follow up with PCP. Sinusitis 03/17/2023 Episodic headache 03/17/2023 Assessment & Plan (03/18/2023 4:46 PM EDT): Possible multifactorial (tension headache vs secondary to HTN) Drink plenty of water [employer] Ibuprofen PRN Adjustment of BP meds RTC 2- 4 weeks Cough in adult 11/11/2022 Encounters Date Type Department Care Team Description 08/29/2025 11:30 AM EDT Office Visit [facility] [address] [place] [phone] Cindy Buckley ANP Essential hypertension (Primary Dx); Encounter for immunization; Anxiety; Migraine without aura and without status migrainosus, not intractable; Gastroesophageal reflux disease, unspecified whether esophagitis present 08/29/2025 Travel 08/28/2025 Travel 08/27/2025 Telephone [facility] [address] [place] [address] Cindy Buckley ANP chart prep 08/26/2025 Telephone [facility] [address] [place] [address] Rhonda Lewis MD ER Follow-up 07/18/2025 Telephone [facility] [address] [place] [address] Rhonda Lewis MD from Last 3 Months Immunizations Immunization Administration Dates Next Due Influenza injectable quadrivalent preservative f ree 12/12/2023,08/01/2020 Influenza, seasonal, injectable, preservative fr ee 08/29/2025,09/28/2024 Pneumococcal Conjugate PCV 20 09/28/2024 Tdap 12/12/2023 Social History Tobacco Use Types Packs/Day Years Used Date Smoking Tobacco: Never Passive Smoke Exposure: Never Smokeless Tobacco: Never Tobacco Cessation:Counseling Given: Not Answered Alcohol Use Standard Drinks/Week Comments Never 0 (1 standard drink = 0.6 oz pur e alcohol) Depression Answer Date Recorded Patient Health Questionnaire-9 Score 5 07/18/2024 Patient Health Questionnaire-9 Score 5 07/18/2024 Last PHQ-9: Questionnaire Data Not on file 0 07/18/2024 Housing Stability Answer Date Recorded What is your housing situation today? I have alex nicole 08/29/[address] you [...] Answer Date Recorded Patient Health Questionnaire-2 Score 2 07/18/2024 Internet Access Answer Date Recorded Internet Access Q1 Yes 01/18/2025 Internet Access Q2 Not on file 01/18/2025 Sex and Gender Information Value Date Recorded Sex Assigned at Male 09/06/2022 10:37 AM EDT Legal Sex Male 10:37 AM EDT Gender Identity Male 09/06/2022 10:37 AM EDT Sexual Orientation Choose not to disclose 2021 10:37 AM EDT Last Filed Vital Signs Vital Sign Reading Time Taken Comments Blood Pressure 110/70 08/29/2025 11:53 AM EDT Pulse 77 08/29/2025 11:53 AM EDT Temperature 36.6 C (97.8 F) 08/29/2025 11:53 AM EDT Respiratory Rate 12 08/29/2025 11:53 AM EDT Oxygen Saturation 99% 08/29/2025 11:53 AM EDT Inhaled Oxygen Concentration - - Weight 72.1 kg (159 lb) 08/29/2025 11:53 AM EDT Height 182.9 cm (6') 08/29/2025 11:53 AM EDT Body Mass Index 21.56 08/29/2025 11:53 AM EDT Plan of Treatment Upcoming Encounters Date Type Department Care Team (Late st Contact Info) Description 09/26/2025 10:00 AM EST Office Visit [facility] [address] [place] [address] Rhonda Lewis MD [address] [place] [address] Health Maintenance Due Date Last Done Comments Family Planning (PISQ) 1995 HPV Vaccines (1 - Male 3-dose series) 1995 Hepatitis B Vaccines (1 of 3 - 19+ 3-dose series) 1999 COVID-19 Vaccine ( season) 2025 12/10/2021, 04/02/2021, 03/12/2021 Depression Screening 07/18/2025 07/18/2024, 07/18/20 24 SDOH Screening 01/18/2026 01/18/2025 Disability Screening 01/27/2026 01/27/2025 Alcohol/Substance Use Screening 01/28/2026 01/28/2025 Tobacco Screening 08/29/2026 08/29/2025 Lipid Panel 01/28/2030 01/28/2025, 09/07, 03/23/2022, Additional history exists Zoster Vaccines (1 of 2) 2030 DTaP/Tdap/Td Vaccines (2 - Td or Tdap) 12/12/2033 12/12/2023 RSV Patients and Patients Aged 60 years or older (1 - 1-dose 75+ series) 2055 Pneumococcal Vaccine: Pediatrics (0 to 5 Years) and At-Risk Patients (6 to 49) Years Completed 09/28/2024 HIV Screening Completed 01/28/2025, 03/23/2022 Hepatitis C Screening Completed 01/28/2025, 022 Influenza Vaccine Completed 08/29/2025, , 12/12/2023, Additional history exists HIB Vaccines Aged Out No longer eligi [...] patient's age to complete this topic Meningococcal Vaccine Aged Out No giovani perlita eligible based on patient's age to complete this topic RSV under 20 months Aged Out No longe r eligible based on patient's age to complete this topic Rotavirus Vaccines Aged Out No longer eligible based on patient's age to complete this topic Procedures Procedure Name Priority Date/Time Associated Diagnosis Comments HEPATITIS C AB W/REFL TO HCV RNA, QN, PCR Routine 01/28/2025 12:00 PM EDT Polyarthralgia HIV 1/2 ANTIGEN/ANTIBODY, FOURTH GENERATION W/RFL Routine 01/28/2025 12:00 PM EDT Polyarthralgia LIPID PANEL, STANDARD Routine 01/28/2025 12:00 PM EDT Polyarthralgia from Last 3 Months or Most Recently Relevant to Health Maintenance Results * Hepatitis C Antibody with Reflex to HCV, RNA, Quantitative, Real-Time PCR (01/28/2025 12:00 PM EDT) Hepatitis C Antibody Nonreactive Nonreactive [facility] Comment:Antibodies to HCV no t detected; does not exclude early acuteHCV infection. Blood Venous blood specimen / Unknown 01/28/2025 12:00 PM EDT 01/28/2025 1:44 PM EDT Rhonda Martinez MD LAB BLOOD ORDERABLES Final Result Performing Organization Address [facility]/ZIP Co de Phone Number [facility] [address] [place] [phone] * HIV-1/2 Antigen and Antibodies, Fourth Generation, with Reflexes (01/28/2025 12:00 PM EDT) [facility] HIV AB/AG Nonreactive Nonreactive [facility] Comment:HIV-1 p24 Ag and/or HIV-1/HIV-2 Ab not detected.A test result that is nonreactive does not exclude thepossibility of exposure to or infection with HIV-1 and/orHIV-2. Nonreactive results in this assay for individualswith prior exposure to HIV-1 and/or HIV-2 may be due toantigen and antibody levels that are below the limit ofdetection of this assay.The [employer] [place] HIV Ag/Ab Combo assay result andsupplemental assay results should be interpreted inconjunction with the patient's clinical presentation,history and other laboratory results. If the results areinconsistent with clinical evidence, additional testing issuggested to confirm the result. Blood Venous blood specimen / Unknown 01/28/2025 12:00 PM EDT 01/28/2025 1:44 PM EDT us Rhonda Martinez MD LAB BLOOD ORDERABLES Final Result Performing Organization Address [facility]/ZIP Co de Phone Number [facility] [address] [place] [phone] * (ABNORMAL) Lipid Panel, Standard (01/28/2025 12:00 PM EDT) Triglycerides 214(H) <150 mg/dL [facility] Comment:Desirable Triglyceri de: less than 150 mg/dLBorderline High Triglyceride 150-199 mg/dLHigh Triglyceride: 200-499 mg/dLVery High Triglyceride: greater than or equal to 5OO mg/dL Cholesterol 184 <200 mg/dL [facility] Comment:Desirable Cholestero l: less than 200 mg/dLBorderline High Cholesterol: 200-239 mg/dLHigh Cholesterol: greater than 239 mg/dL LDL Cholesterol Calculated 107(H) <100 mg/dL [facility] Comment:Desirable LDL: less than 100 mg/dLNear Optimal/Above Optimal LDL: 110- 129 mg/dLBorderline High LDL: 130-159 mg/dLHigh LDL: 160-189 mg/dLVery High LDL: greater than or equal to 190 mg/dL HDL Cholesterol 35(L) >40 mg/dL [facility] Comment:Desirable HDL: great er than 40 mg/dL Note: This HDL assay may give artificially low results in patients with liver disease. Blood Venous blood specimen / Unknown 01/28/2025 12:00 PM EDT 01/28/2025 1:44 PM EDT us Rhonda Martinez MD LAB BLOOD ORDERABLES Final Result [facility] [address] [place] [address] [phone] from Last 3 Months or Most Recently Relevant to Health Maintenance [place] [place] [address] C[employer] P[employer] HSN F[employer] Care Teams Layer Out Plate Glass Relationship Specialty Start Date End Date Rhonda Lewis MD [address] [place] [phone] PCP - General Family Medicine 06/02/20
--- OUTSIDE RECORDS SUMMARY | 2025-09-06 09:10 | XMS_ITS | Clinical Summary ---
Author Organization [address] Address [address] [place] [address] Phone Care Team Providers Care Internet Marketing Manager Name Role Phone Javier Taylor MD Primary Care Provider Allergies Active Allergy Reactions Criticality Noted Date Comments Iodinated Contrast Media Rash Low 03/10/2021 Encounters Date Type Department Care Team Description 08/22/2025 2:03 PM EDT - 08/22/2025 6:56 PM EDT Emergency [facility] Emergency [address] [place] [address] Rosetta Tipton MD Chest pain, unspecified type (Primary Dx); Gastroesophageal reflux disease with esophagitis without hemorrhage; Palpitations Discharge Disposition: Home or Self Care from Last 3 Months Surgical History Surgery Date Site/Laterality Comments HERNIA REPAIR Medical History Medical History Date Comments Hypertension Social History Tobacco Use Types Packs/Day Years Used Date Smoking Tobacco: Never Smokeless Tobacco: Never Tobacco Cessation:Counseling Given: Not Answered Sex and Gender Information Value Date Recorded Sex Assigned at Not on file Legal Sex Male 4:47 PM EST Gender Identity Not on file Sexual Orientation Not on file Obstetrics History Last Filed Vital Signs Vital Sign Reading Time Taken Comments Blood Pressure 123/76 08/22/2025 5:47 PM EDT Pulse 72 08/22/2025 5:47 PM EDT Temperature 36.9 C (98.4 F) 08/22/2025 5:47 PM EDT Respiratory Rate 20 08/22/2025 5:47 PM EDT Oxygen Saturation 100% 08/22/2025 5:47 PM EDT Inhaled Oxygen Concentration - - Weight 72.6 kg (160 lb) 08/22/2025 3:41 PM EDT Height 182.9 cm (6') 08/22/2025 3:41 PM EDT Body Mass Index 21.7 08/22/2025 3:41 PM EDT Plan of Treatment Health Maintenance Due Date Last Done Comments Hepatitis B Vaccines (1 of 3 - 19+ 3-dose series) 1999 HPV Vaccines (1 - 3-dose SCD M series) 2007 Depression Screening 11/07/2024 COVID-19 Vaccine (4 - 2024-2 6 season) 2025 12/10/2021, 04/02/2021, 03/12/2021 Influenza Vaccine (#1) 2025 , 12/12/2023, 08/01/2020 Social Influencers of Health Screening 07/18/2025 Hypertension/CHF/CAD Annual BMP Blood Test 08/22/2026 08/22/2025 Cholesterol Screening (Lipid Panel) 01/28/2030 01/28/2025, 03/09/2019 DTaP,Tdap,and Td Vaccines (2 - Td or Tdap) 12/12/2033 12/12/2023 RSV Immunization Adult Patients (1 - 1-dose 75+ series) 2055 Pneumococcal Vaccine: Pediatrics (0 to 5 Years) and At-Risk Patients (6 to 49 Years) Completed 09/28/2024 HIV Screening Completed 01/28/2025 Hepatitis C Screening Completed 01/28/2025 HIB Vaccines Aged Out No longer eligi [...] to complete this topic RSV Immunization Patients Under 20 months Aged Out No longer eligible b ased on patient's age to complete this topic Varicella Vaccines Aged Out No longer eligible based on patient's age to complete this topic Procedures Procedure Name Priority Date/Time Associated Diagnosis Comments ECG ANNOTATED 08/23/2025 TROPONIN I HIGH SENSITIVITY STAT 08/22/2025 5:25 PM EDT COMPLETE BLOOD COUNT STAT 08/22/2025 3:26 PM EDT LIPASE STAT 08/22/2025 3:26 PM EDT COMPREHENSIVE METABOLIC PANEL STAT 08/22/2025 3:26 PM EDT TROPONIN I HIGH SENSITIVITY STAT 08/22/2025 3:26 PM EDT XR CHEST 1 VIEW STAT 08/22/2025 2:54 PM EDT ECG 12-LEAD STAT 08/22/2025 1:17 PM EDT from Last 3 Months Results * ECG-Annotated (08/23/2025) us Provider Onbase ECG ORDERABLES Final Result * Troponin I High Sensitivity (08/22/2025 5:25 PM EDT) Only the most recent of2 resultswithin the time period is included. High Sensitivity Troponin I 7 <=79 ng/L LAB CHEMISTRY METHOD 08/22/2025 6:13 PM EDT [facility] Blood Venous blood specimen / Unknown Venipuncture / Unknown 08/22/2025 5:25 PM EDT 08/22/2025 5:44 PM EDT Narrative [facility] - 08/22/2025 6:13 PM EDT High levels of biotin in samples may falsely decrease hsTroponin values. Use caution when interpreting hsTroponin results in patients taking biotin who exhibit renal impairment (eGFR <60) or in patients taking more than 20 mg/day of biotin. us Rosetta Tipton MD LAB BLOOD ORDERABLES Final Resul t [facility] [address] [place] [address], * CBC (08/22/2025 3:26 PM EDT) [facility] Signature WBC 10.3 4.8 - 10.8 K/mcL LAB HEMETOLOGY METHOD 08/22/2025 3:38 PM EDT [facility] RBC 4.80 4.50 - 5.50 M/mcL LAB HEMETOLOGY METHOD 08/22/2025 3:38 PM EDT [facility] Hemoglobin 14.7 13.5 - 17.5 g/dL LAB HEMETOLOGY METHOD 08/22/2025 3:38 PM EDT [facility] Hematocrit 44.5 42.0 - 54.0 % LAB HEMETOLOGY METHOD 08/22/2025 3:38 PM EDT [facility] MCV 92.5 79.0 - 98.0 FL LAB HEMETOLOGY METHOD 08/22/2025 3:38 PM EDT [facility] MCH 30.6 27.0 - 32.0 pcg LAB HEMETOLOGY METHOD 08/22/2025 3:38 PM EDT [facility] MCHC 33.0 32.0 - 37.0 g/dL LAB HEMETOLOGY METHOD 08/22/2025 3:38 PM EDT [facility] RDW 12.3 11.0 - 15.0 % LAB HEMETOLOGY METHOD 08/22/2025 3:38 PM EDT [facility] Platelets 320 130 - 400 K/mcL LAB HEMETOLOGY METHOD 08/22/2025 3:38 PM EDT [facility] MPV 10.2 7.0 - 11.0 FL LAB HEMETOLOGY METHOD 08/22/2025 3:38 PM EDT [facility] NRBC 0.0 <1.0 % LAB HEMETOLOGY METHOD 08/22/2025 3:38 PM EDT [facility] NRBC Absolute 0.00 <0.10 K/mcL LAB HEMETOLOGY METHOD 08/22/2025 3:38 PM EDT [facility] Blood Venous blood specimen / Unknown Venipuncture / Unknown 08/22/2025 3:26 PM EDT 08/22/2025 3:32 PM EDT Rosetta Tipton MD LAB BLOOD ORDERABLES Final Resul t Performing Organization Address City/[facility]/ZIP Co de Phone Number [facility] [address] [place] [address], [place] [phone] * Lipase (08/22/2025 3:26 PM EDT) Lipase 43 13 - 75 unit/L LAB CHEMISTRY METHOD 08/22/2025 4:09 PM EDT [facility] Blood Venous blood specimen / Unknown Venipuncture / Unknown 08/22/2025 3:26 PM EDT 08/22/2025 3:33 PM EDT Rosetta Tipton MD LAB BLOOD ORDERABLES Final Resul t Performing Organization Address [facility]/ZIP Co de Phone Number [facility] [address] [place] [address], [place] [phone] * (ABNORMAL) Comprehensive Metabolic Panel (CMP) (08/22/2025 3:26 PM EDT) Sodium 141 133 - 145 mmol/L LAB CHEMISTRY METHOD 08/22/2025 4:09 PM EDT [facility] Potassium 4.4 3.5 - 5.5 mmol/L LAB CHEMISTRY METHOD 08/22/2025 4:09 PM EDT [facility] Chloride 107 96 - 110 mmol/L LAB CHEMISTRY METHOD 08/22/2025 4:09 PM [facility] CO2 31 21 - 32 mmol/L LAB CHEMISTRY METHOD 08/22/2025 4:09 PM [facility] Anion Gap 3 3 - 11 LAB CHEMISTRY METHOD 08/22/2025 4:09 PM [facility] Glucose 105(H) 70 - 100 mg/dL LAB CHEMISTRY METHOD 08/22/2025 4:09 PM [facility] BUN 8 5 - 25 mg/dL LAB CHEMISTRY METHOD 08/22/2025 4:09 PM [facility] Creatinine 0.97 0.70 - 1.30 mg/dL LAB CHEMISTRY METHOD 08/22/2025 4:09 PM [facility] eGFR 99 >=60 mL/min/1. 73m2 LAB CHEMISTRY METHOD 08/22/2025 4:09 PM [facility] Comment:Calculation based on the Chronic Kidney Disease Epidemiology Collaboration (CKD-EPI) equation refit without adjustment for race. BUN/Creatinine Ratio 8.2 LAB CHEMISTRY METHOD 08/22/2025 4:09 PM [facility] Calcium 9.4 8.5 - 10.5 mg/dL LAB CHEMISTRY METHOD 08/22/2025 4:09 PM [facility] AST (SGOT) 16 10 - 42 unit/L LAB CHEMISTRY METHOD 08/22/2025 4:09 PM [facility] ALT (SGPT) 36 10 - 60 unit/L LAB CHEMISTRY METHOD 08/22/2025 4:09 PM [facility] Alkaline Phosphatase 135(H) 42 - 121 unit/L LAB CHEMISTRY METHOD 08/22/2025 4:09 PM [facility] Total Protein 7.7 6.0 - 8.0 g/dL LAB CHEMISTRY METHOD 08/22/2025 4:09 PM [facility] Albumin 4.5 3.2 - 5.0 g/dL LAB CHEMISTRY METHOD 08/22/2025 4:09 PM EDT [facility] Total Bilirubin 0.5 0.0 - 1.4 mg/dL LAB CHEMISTRY METHOD 08/22/2025 4:09 PM EDT [facility] Blood Venous blood specimen / Unknown Venipuncture / Unknown 08/22/2025 3:26 PM EDT 08/22/2025 3:33 PM EDT us Rosetta Tipton MD LAB BLOOD ORDERABLES Final Resul t [facility] [address] [place] [address], [place] [phone] * XR Chest 1 View (08/22/2025 2:54 PM EDT) Anatomical Region Laterality Modality Body Radiographic Marycruz ging 08/22/2025 3:18 PM EDT Impressions 08/22/2025 3:19 PM EDT FINDINGS/IMPRESSION: Normal heart size and pulmonary vascularity. Lungs are clear and costophrenic angles are sharp. No acute osseous abnormality. -------- FINAL REPORT -------- Dictated By: Dev Trotter Dictated Date: 08/22/2025 15:18 ET Assigned Physician: Dev Trotter Reviewed and Electronically Signed By: Dev Trotter Signed Date: 08/22/2025 15:19 ET Workstation ID: [id number] Transcribed By: Self Edit Transcribed Date: 08/22/2025 15:18 ET Narrative 08/22/2025 3:19 PM EDT XR CHEST 1 VIEW INDICATION: chest pain TECHNIQUE: XR CHEST 1 VIEW COMPARISON: None Procedure Note Dev Trotter MD - 08/22/2025 XR CHEST 1 VIEW INDICATION: chest pain TECHNIQUE: XR CHEST 1 VIEW COMPARISON: None IMPRESSION: FINDINGS/IMPRESSION: Normal heart size and pulmonary vascularity. Lungsare clear and costophrenic angles are sharp. No acute osseousabnormality. -------- FINAL REPORT -------- Dictated By: Dev Trotter Dictated Date: 08/22/2025 15:18 ET Assigned Physician: Dev Trotter Reviewed and Electronically Signed By: Dev Trotter Signed Date: 08/22/2025 15:19 ET Workstation ID: [id number] Transcribed By: Self Edit Transcribed Date: 08/22/2025 15:18 ET us Rosetta Tipton MD IMG XR PROCEDURES Final Result * ECG 12 lead (08/22/2025 1:17 PM EDT) Ventricular Rate ECG 64 BPM GEMUSE Atrial Rate 64 BPM GEMUSE P-R Interval 138 ms GEMUSE QRS Duration 80 ms GEMUSE Q-T Interval 402 ms GEMUSE QTc 414 ms GEMUSE P Wave Pool 66 degrees GEMUSE R Pool 69 degrees GEMUSE T Pool 68 degrees GEMUSE ECG Interpretation Normal sinus rhythm Left ventricular hypertrophy with repolarization abnormality ( Sokolow-Gould ) When compared with ECG of 03-AUG-2018 09:10, No significant change was found Confirmed by BETTINA VELA ([id number]) on 08/22/2025 9:11:54 PM GEMUSE 08/22/2025 1:17 PM EDT 08/22/2025 9:11 PM EDT us Evin BARR ECG ORDERABLES Final Resul t GEMUSE from Last 3 Months Insurance [employer] [place]ICA[place] - [place] Care Teams Internet Marketing Manager Relationship Specialty Start Date End Date Javier Taylor MD [address] [place] [address] PCP - General Internal Medicine 03/10/18
== END 2025-09-06 09:42 | disposition home or self-care (01) ==
LOC: HO.HCS 08:48
PROVIDERS: PCP Internal Medicine; Visit Provider Nurse Practitioner Family
DX: R00.2 Palpitations (principal); R07.9 Chest pain, unspecified; Z09 Encounter for follow-up examination after completed treatment for conditions other than malignant neoplasm
CPT/HCPCS: 99214; G2211

== ENCOUNTER → 2025-09-23 10:39 | Outpatient (REF) | payer OTHER, MEDICAID, SELFPAY | LOC: HO.CARD 10:39 | PROVIDERS: PCP Internal Medicine; Visit Provider Nurse Practitioner Family | DX: R00.2 Palpitations (principal) | CPT/HCPCS: 93270 ==

== ENCOUNTER → 2025-09-23 11:18 | Outpatient (BNV) | payer OTHER, MEDICAID, SELFPAY | PROVIDERS: PCP Internal Medicine; Visit Provider Internal Medicine Cardiovascular Disease | DX: I49.1 Atrial premature depolarization (principal) | CPT/HCPCS: 93272 ==